=== PATIENT | female | born 1975 | race Caucasian/White ===

== ENCOUNTER 2022-01-20 07:56 | Emergency (ER) | payer MEDICAID, SELFPAY ==
[2022-01-20 08:10] VITALS: BP 124/72; PULSE 79; RESP 16; TEMP 37; O2SAT 96; BMI 35.8
--- NOTE | 2022-01-20 08:31 | ED.GENADULT ---
HPI - General Adult General Time Seen by Provider: 08:31 Date Seen: 01/20/22 Chief complaint: Cough Stated complaint: Cough, aches Time Seen by Provider: 01/20/22 08:30 Source: patient and RN notes reviewed Mode of arrival: ambulatory Limitations: no limitations History of Present Illness HPI narrative: Patient is a 46-year-old female coming into the ER with complaints of cough seen and intermittent fevers. She started getting sick on Monday night, today is morning. She has had nasal congestion, upper sore throat from the nasal drainage. She has had coughing fits where she will feel like she is going to throw up. This morning she coughs so hard that she actually fell down. She denies any injury, no loss of consciousness, not having any pain anywhere. She went to the clinic on Monday, her strep was normal, they are not testing for influenza yet and her COVID is still pending there. She has 3 other kids at home that sound ill as well. She states 2 of them ended up getting treated for ear infections and 1 with sinus issues. Her other son is starting to feel better. She states she had influenza twice last year despite the shot. She feels like that. She has significant body aches. No baseline nausea vomiting or diarrhea. She does have MS. Related Data Home Medications Medication Instructions Recorded Confirmed famotidine 20 mg tablet 20 mg PO DAILY 01/20/22 01/20/22 hydrochlorothiazide 25 mg tablet mg 01/20/22 hydrochlorothiazide 50 mg tablet 50 mg PO DAILY 01/20/22 01/20/22 lisinopril 10 mg tablet 10 mg PO DAILY 01/20/22 01/20/22 ofatumumab 20 mg/0.4 mL 20 mg subcut .monthly 01/20/22 01/20/22 subcutaneous pen injector (Kesimpta Pen) sertraline 100 mg tablet 100 mg PO DAILY 01/20/22 01/20/22 tizanidine 2 mg tablet 2 mg PO Q8H PRN 01/20/22 01/20/22 tizanidine 4 mg tablet 4 mg PO HS PRN muscle spasticity 01/20/22 01/20/22 Allergies Allergy/AdvReac Type Severity Reaction Status Date / Time acetaminophen [From Percocet] Allergy Verified 01/20/22 08:20 oxycodone Allergy Verified 01/20/22 08:20 Review of Systems Status of ROS: Reports: 6 or more systems reviewed and unremarkable except as noted in History and below PFSH PFS Social History Smoking Status: Former smoker Do you use any of these nicotine containing products: None Second hand tobacco smoke exposure: No How often do you have a drink containing alcohol: monthly or less How often do you have six or more drinks on one occasion: Never AUDIT-C Alcohol total score: 1 Non-prescribed substance use: denies use Exam Const: Vital Signs, click to edit/add: Vital Signs - 24 hr 01/20/22 08:10 01/20/22 09:30 Temperature 98.6 F 97.9 F Pulse Rate [Right Pulse Oximeter] 79 73 Respiratory Rate 16 16 Blood Pressure [Ri ght Upper Arm] 124/72 115/64 Pulse Oximetry 96 98 Oxygen Delivery Me thod Room Air Room Air Documenting provider has reviewed patient's vital signs: yes Common normals: no apparent distress, average body habitus, oriented x3, no limitations, alert and well nourished Exam limitations: altered mental status General appearance: cooperative and comfortable Other: Has audible nasal congestion but is able to speak in complete sentences, no hoarseness. HENMT: Common normals: normocephalic, head/scalp atraumatic, hearing grossly normal bilaterally, external ears normal, EAC's normal, TM's normal bilaterally, external nose normal, nasal mucous membranes and turbinates normal, moist oral mucous membranes, oropharynx normal, dentition normal and gingiva normal Head and scalp: normocephalic and atraumatic Nose: external nose normal and nasal mucous membranes and turbinates normal External ear: external ears normal External auditory canal: EAC's normal Tympanic membrane: TM's normal bilaterally Eye: Common normals: PERRL, EOMs intact bilaterally, conjunctivae normal and no scleral icterus Conjunctiva: conjunctiva(e) normal Pupil: PERRL Neck & C-Spine: Common normals: full ROM, no lymphadenopathy, supple, no meningeal signs, no JVD and thyroid normal Thyroid: thyroid normal Resp: Common normals: normal respiratory effort, no retractions, no use of accessory muscles and clear to auscultation bilaterally Auscultation: clear to auscultation bilaterally Cardio: Common normals: no JVD, regular rate, regular rhythm, S1 normal heart sound, S2 normal heart sound, no gallops, no clicks, no murmurs and no rub Rate: regular rate Rhythm: regular rhythm Heart sounds: S1 normal and S2 normal Neuro: Common normals: oriented x3 Sensorium/orientation: alert Meningeal signs: no meningeal signs Course Course Hospital Course: She is hemodynamically stable, oxygenating very well here. We will obtain a portable chest x-ray and do influenza and COVID testing. Reevaluation(s) Reevaluation #1: Patient is having significant headache. We discussed options. She would like to proceed with the Toradol. She is also requesting some water. Time: 09:41 Reevaluation #2: Reviewed with patient that her chest x-ray is normal, influenza negative but she is COVID positive. She would be interested in treatment and is within 5 day window to take oral treatment with Paxlovid. We would need a creatinine. I did put all of her medicines in the [facility] drug interaction and there was no contraindications. Time: 09:46 Vital Signs Vital signs: Initial Vital Signs Temperature 98.6 F 01/20/22 08:10 Temperature Source Temporal Artery Scan 01/20/22 08:10 Pulse Rate 79 01/20/22 08:10 Respiratory Rate 16 01/20/22 08:10 Blood Pressure 124/72 01/20/22 08:10 Blood Pressure Mean 89 01/20/22 08:10 Blood Pressure Position Semi-Fowlers 01/20/22 08:10 Pulse Oximetry 96 01/20/22 08:10 Oxygen Delivery Method 01/20/22 08:10 Vital Signs Temperature 98.6 F 01/20/22 08:10 Pulse Rate 79 01/20/22 08:10 Respiratory Rate 16 01/20/22 08:10 Blood Pressure 124/72 01/20/22 08:10 Pulse Oximetry 96 01/20/22 08:10 Oxygen Delivery Method 01/20/22 08:10 Temperature 97.9 F 01/20/22 09:30 Pulse Rate 73 01/20/22 09:30 Respiratory Rate 16 01/20/22 09:30 Blood Pressure 115/64 01/20/22 09:30 Pulse Oximetry 98 01/20/22 09:30 Oxygen Delivery Method 01/20/22 09:30 Medical Decision Making Lab Data Lab results reviewed: Yes I reviewed the patient's lab results Lab results narrative: Have calculated her creatinine clearance to be 121 mL/min, certainly sufficient to take the medicine Labs: Lab Results 01/20/22 01/20/22 Range/Units 08:22 09:50 SARS-CoV-2 (PCR) POSITIVE SARS-CoV-2 A (Negative) Influenza Type A (PCR) Negative PCR FLU A (Negative) Influenza Type B (PCR) Negative PCR FLU B (Negative) POC Creatinine 0.9 (0.6-1.3) mg/dl Imaging Data Chest x-ray: Attestation: I have reviewed the pertinent imaging results. My impression: Chest x-ray portable on my preliminary read without any acute cardiopulmonary pathology. Radiologist's impression: Patient: AMBAR GUZMÁN Facility:?[facility] Patient ID:?[id number] Site Patient ID:?[id number]. Site :?[id number] Study:?XRay Chest 1 VIEW PORTABLE-01/20/2022 9:14:01 AM Ordering Physician:Nick Baltazar Final Report: INDICATION: Cough TECHNIQUE: Single view chest. FINDINGS: The lungs are clear. The heart, mediastinum and pulmonary vessels are of normal size. There is no evidence of pleural disease. IMPRESSION: Negative chest. Dictated by Madison Vegas MD @ 01/20/2022 9:21:54 AM (Electronic Signature) Critical Care Time Critical Care Time Critical Care Time: No Discharge Plan Discharge Clinical Impression: COVID-19 Patient Disposition: Home, Self-Care Condition: Stable Instructions: COVID-19 (Coronavirus Disease 2019) (ED), COVID-19: Slow the Coronavirus Spread (ED) Additional Instructions: Start Paxlovid, needs to be started within the next 24 hours to be in the time frame to make it appropriate to take. Need to try to ambulate some every hour while you are awake to help keep your lungs open with the COVID. Need to stay out of public per CDC guidelines, certainly need to feel better and be improving. If you are worsening, develops chest pain, have significant difficulty breathing or shortness of breath, do need to seek re-evaluation. Activity Level: Activity as Tolerated Prescriptions: No Action famotidine 20 mg tablet 20 mg PO DAILY hydrochlorothiazide 25 mg tablet hydrochlorothiazide 50 mg tablet 50 mg PO DAILY lisinopril 10 mg tablet 10 mg PO DAILY Label Comments: TAKE ONE TABLET BY MOUTH EVERY DAY sertraline 100 mg tablet 100 mg PO DAILY tizanidine 2 mg tablet 2 mg PO Q8H PRN Label Comments: TAKE ONE TABLET BY MOUTH EVERY 8 HOURS NEEDED FOR MUSCLE SPASM. USE THE 2MG TABLET DURING THE DAY FOR DECREASED SEDATION, 4MG AT BEDTIME tizanidine 4 mg tablet 4 mg PO HS PRN (Reason: muscle spasticity) Kesimpta Pen 20 mg/0.4 mL pen injector 20 mg SUBCUT .monthly Stand Alone Forms: [facility] Inst[facility]
--- NOTE | 2022-01-20 08:38 | CRLHL7_ITS ---
For Patients: As a result of the Century Cures Act, medical imaging exams and procedure reports are released immediately into your electronic medical record. You may view this report before your referring provider. If you have questions, please contact your health care provider. INDICATION: Cough TECHNIQUE: Single view chest. FINDINGS: The lungs are clear. The heart, mediastinum and pulmonary vessels are of normal size. There is no evidence of pleural disease. IMPRESSION: Negative chest. Dictated by Madison Vegas MD @ 01/20/2022 9:21:54 AM (Electronically Signed)
--- OUTSIDE RECORDS SUMMARY | 2022-01-20 08:48 | XMS_ITS | Clinical Summary ---
:1975 Author Organization [facility] Address [address] [place] [address] Care Team Providers Name Role Phone Dianne Hewitt Primary Care Provider [phone] [facility], [facility] Unavailable [phone] Allergies Active Allergy Reactions Severity Noted Date Comments Duloxetine 01/06/2021 Oxycodone-Acetaminophen 01/06/2021 Dimethyl Fumarate 01/06/2021 Medications Medication Sig Dispensed Refills Start Date End Date Status acetaminophen (TYLENOL) Take 1,000 mg 0 Active 500 mg oral tablet by mouth. tiZANidine (ZANAFLEX) 4 mg TAKE ONE 0 11/18/2020 Active oral tablet TABLET BY MOUTH EVERY 8 HOURS NEEDED FOR MUSCLE SPASM ubrogepant (UBRELVY) 100 Take 100 mg by 0 08/11/2020 Active mg oral Tab mouth. sertraline (ZOLOFT) 100 mg Take 100 mg by 0 Active oral tablet mouth once daily. lisinopriL (PRINIVIL) 10 Take 1 tablet 0 04/21/2021 Active mg oral tablet (10 mg) by mouth once daily. hydroCHLOROthiazide Take 2 tablets 90 tablet 0 07/21/2021 Active (HYDRODIURIL) 25 mg oral (50 mg) by tablet mouth. Cholecalciferol, Vitamin Take 5,000 0 07/24/2020 Active D3, 5,000 unit (125 mcg) Units by oral tablet mouth. cyanocobalamin 1,000 mcg Take 1,000 mcg 0 07/24/2020 Active oral tablet by mouth. famotidine (PEPCID) 20 mg Take 20 mg by 0 06/16/2021 Active oral tablet mouth. ofatumumab (KESIMPTA PEN) Inject 20 mg 1.2 mL 3 09/28/2021 Active 20 mg/0.4 mL SubQ PnIj under the skin every 30 (thirty) days. Active Problems Problem Noted Date H/O total hysterectomy 08/11/2021 Multiple sclerosis 01/06/2021 Rheumatoid arthritis 07/24/2016 Multiple sclerosis 07/24/2016 Vitamin D deficiency 05/18/2012 Back pain Encounters Date Type Specialty Care Team Description 11/17/2021 Ancillary Procedure Radiology Multiple sclerosis, relapsing-remit ting (HCC) 11/17/2021 Ancillary Procedure Radiology Multiple sclerosis, relapsing-remit ting (HCC) 11/17/2021 Ancillary Procedure Radiology Multiple sclerosis, relapsing-remit ting (HCC) 11/17/2021 Travel 10/20/2021 Office Visit Neurology Prachi Duran, Multiple sclerosis, relapsing-remit ting (HCC) (Primary Dx) 10/20/2021 Travel from Last 3 Months Immunizations Name Administration Dates Next Due H1N1 Influenza 02/27/2009 Influenza 01/12/2021, 01/14/2020, 03/20/2019, 03/14/2018, 02/07/2017, 01/19/2016, 02/12/2015, 01/29/2014 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 07/26/2020, 06/28/2020 VACCINE PFIZER 12+ YRS (PURPLE CAP) COVID 03/17/2021 VACCINE Family History Medical History Relation Comments Asthma Other High Blood Pressure Other Migraines Other Relation Status Comments Other Social History Tobacco Use Types Packs/Day Years Used Date Smoking Tobacco: Never Smokeless Tobacco: Never Tobacco Cessation: Counseling Given: No Sex Assigned at Date Recorded Female 12/30/2020 9:08 AM CDT Plan of Treatment Health Maintenance Due Date Last Done Comments Colonoscopy 1975 Hepatitis C Screening 1975 Lipid Screening 1975 Pap Smear 1975 COVID-19 Vaccine (4 - 05/12/2021 03/17/2021, 07/26/2020, Booster for Moderna series) 06/28/2020 Influenza Vaccine (#1) 2021 01/12/2021, 01/14/2020, 03/20/2019, Additional history exists Mammogram Screening 08/26/2023 08/25/2021 Adult Tetanus Booster 08/26/2031 08/25/2021 Pneumococcal <65 Aged Out No longer eligi ble based on patient 's age to complete this topic Procedures Procedure Name Priority Date/Time Associated Comments Diagnosis MRI SPINE THORACIC W/[facility] Routine 11/17/2021 11:15 Multiple Results for this CON AM CDT sclerosis, procedure are i n relapsing-remittin the resul ts g (HCC) section. MRI SPINE CERVICAL W/[facility] Routine 11/17/2021 11:14 Multiple Results for this CON AM CDT sclerosis, procedure are i n relapsing-remittin the resul ts g (HCC) section. MRI BRAIN W/[facility] CON Routine 11/17/2021 11:02 Multiple Resu lts for this AM CDT sclerosis, procedure are i n relapsing-remittin the resul ts g (HCC) section. IMMUNOGLOBULINS A/E/G/M Routine 10/20/2021 10:45 Multiple Results for this QUANT ([facility]) AM CDT sclerosis, procedure ar e in relapsing-remittin the resul ts g (HCC) section. CBC/DIFFERENTIAL WITH Routine 10/20/2021 10:45 Multiple Re sults for this PLATELET ([facility]) AM CDT sclerosis, procedure are in relapsing-remittin the resul ts g (HCC) section. from Last 3 Months Results MRI SPINE THORACIC W/[facility] CON (11/17/2021 11:15 AM CDT) Anatomical Region Laterality Modality Spine Magnetic Resonance Specimen (Source) Anatomical Collection Method Collection Time Re ceived Time Location / / Volume Laterality 11/17/2021 1:45 PM CDT Impressions 11/17/2021 1:49 PM CDT 1. ??Normal thoracic spinal cord. 2. ??Unchanged disc degeneration as deta iled. This includes a disc extrusion at T7-8 causing mild to moderate spinal stenosis. Report signed by: Yann Alvarez MD Narrative 11/17/2021 1:49 PM CDT EXAM: MRI THORACIC SPINE WITHOUT AND WITH CONTRAST, 11/17/2021 CLINICAL DATA: Multiple sclerosis. COMPARISON: 08/18/2020. TECHNIQUE: Precontrast sagittal T1, T2, STIR; axial T2. Postcontrast sagittal T1. CONTRAST: 10 ml Gadavist IV FINDINGS: The thoracic spinal cord remai ns normal in appearance. No abnormal intramedullary lesion. No cord atrophy/expansion or abnormal enhancement with contrast. Alignment and curvature of the spine are within normal limits. Normal marrow signal. No fracture or wor risome bone lesion. Central to left paracentral disc extrusi on at T7-8 is unchanged, extending along near entirety of the posterior T7 vertebra. It continues to indent the ventral thecal sac but does not significantly deform the spinal cord. Minimal posterior disc bulge at T10-11, no associated stenosis. Larger diffuse disc bulge at T12-L1 causes mild spinal canal narrowing. No paraspinal soft tissue abnormality. Procedure Note Yann Alvarez MD - 11/17/2021Format ting of this note might be different from the original. EXAM: MRI THORACIC SPINE WITHOUT AND WIT H CONTRAST, 11/17/2021 CLINICAL DATA: Multiple sclerosis. COMPARISON: 08/18/2020. TECHNIQUE: Precontrast sagittal T1, T2, STIR; axial T2. Postcontrast sagittal T1. CONTRAST: 10 ml Gadavist IV FINDINGS: The thoracic spinal cord remai ns normal in appearance. No abnormal intramedullary lesion. No cord atrophy/expansion or abnormal enhancement with contrast. Alignment and curvature of the spine are within normal limits. Normal marrow signal. No fracture or wor risome bone lesion. Central to left paracentral disc extrusi on at T7-8 is unchanged, extending along near entirety of the posterior T7 vertebra. It continues to indent the ventral thecal sac but does not significantly deform the spinal cord. Minimal posterior disc bulge at T10-11, no associated stenosis. Larger diffuse disc bulge at T12-L1 causes mild spinal canal narrowing. No paraspinal soft tissue abnormality. IMPRESSION 1. Normal thoracic spinal cord. 2. Unchanged disc degeneration as detail ed. This includes a disc extrusion at T7-8 causing mild to moderate spinal stenosis. Report signed by: Yann lAvarez MD Prachi Duran MD MRI ORDERABLE MRI SPINE CERVICAL W/O&W CON (11/17/2021 11:14 AM CDT) Anatomical Region Laterality Modality Spine Magnetic Resonance Specimen (Source) Anatomical Collection Method Collection Time Re ceived Time Location / / Volume Laterality 11/17/2021 1:44 PM CDT Impressions 11/17/2021 1:45 PM CDT 1. ??Normal cervical/upper thoracic spin al cord. 2. ??Unchanged disc bulge at C5-6 causin g mild spinal stenosis. Report signed by: Jaime Sorensen Narrative 11/17/2021 1:45 PM CDT EXAM: MRI CERVICAL SPINE WITHOUT AND WITH CONTRAST, 11/17/2021 CLINICAL DATA: Multiple sclerosis. COMPARISON: 08/18/2020. TECHNIQUE: Precontrast sagittal T2, STIR ; axial FE T2. Postcontrast sagittal T1. CONTRAST: 10 ml Gadavist IV FINDINGS: The cervical and upper thoraci c spinal cord remain normal in appearance. No abnormal intramedullary lesion. No cord atrophy/expansion or abnormal enhancement after contrast. Alignment and curvature of the spine are within normal limits. Normal marrow signal. No fracture or wor risome bone lesion. Diffuse disc bulge at C5-6 is unchanged from before. It continues to flatten the ventral thecal sac without deforming the cord. Neural foramina are all widely patent. No paraspinal soft tissue abnormality. Procedure Note Yann Alvarez MD - 11/17/2021Format ting of this note might be different from the original. EXAM: MRI CERVICAL SPINE WITHOUT AND WIT H CONTRAST, 11/17/2021 CLINICAL DATA: Multiple sclerosis. COMPARISON: 08/18/2020. TECHNIQUE: Precontrast sagittal T2, STIR ; axial FE T2. Postcontrast sagittal T1. CONTRAST: 10 ml Gadavist IV FINDINGS: The cervical and upper thoraci c spinal cord remain normal in appearance. No abnormal intramedullary lesion. No cord atrophy/expansion or abnormal enhancement after contrast. Alignment and curvature of the spine are within normal limits. Normal marrow signal. No fracture or wor risome bone lesion. Diffuse disc bulge at C5-6 is unchanged from before. It continues to flatten the ventral thecal sac without deforming the cord. Neural foramina are all widely patent. No paraspinal soft tissue abnormality. IMPRESSION 1. Normal cervical/upper thoracic spinal cord. 2. Unchanged disc bulge at C5-6 causing mild spinal stenosis. Report signed by: Jaime Sorensen Prachi Duran MD MRI ORDERABLE MRI BRAIN W/O&W CON (11/17/2021 11:02 AM CDT) Anatomical Region Laterality Modality Head Magnetic Resonance Specimen (Source) Anatomical Collection Method Collection Time Re ceived Time Location / / Volume Laterality 11/17/2021 1:21 PM CDT Impressions 11/17/2021 1:43 PM CDT Findings compatible with intracranial demyelination given clinical diagnosis of multiple sclerosis. No change since August 2020: 1. ??T2 lesion burden: Mild, stable. 2. ??T1 lesion burden: Mild, stable. ?? 3. ??Lesion enhancement: None. 4. ??Volume loss: Localized atrophy righ t middle cerebellar peduncle unchanged. Report signed by: Jiame Sorensen Narrative 11/17/2021 1:43 PM CDT EXAM: MRI BRAIN WITHOUT AND WITH CONTRAST, ??11/17/2021 CLINICAL DATA: Multiple sclerosis. COMPARISON: 08/18/2020. TECHNIQUE: Sagittal FLAIR T1, sagittal F LAIR T2, axial DWI, axial FLAIR T2, axial FSE T2, axial GRE, axial and coronal T1 post gadolinium. CONTRAST: 10 ml Gadavist IV FINDINGS: T2 hyperintense lesions in the brain's white matter are unchanged since last year. In the cerebral hemispheres these are both periventricular and juxtacortical in location. Temporal lobes and corpus callosum are affected. Dominant l esion across right brachium pontis with extension to the superior cerebellar peduncle and inferolateral olga. No new T2 bright finding. Most of the lesions show corresponding s ignal hypointensity on the noncontrast T1-weighted images. The T1 lesion burden has not changed. No abnormal enhancement. Atrophy of the right middle cerebellar p eduncle unchanged. Brain volume elsewhere is normal. No sinus or mastoid disease. Procedure Note Yann Alvarez MD - 11/17/2021Format ting of this note might be different from the original. EXAM: MRI BRAIN WITHOUT AND WITH CONTRAS T, 11/17/2021 CLINICAL DATA: Multiple sclerosis. COMPARISON: 08/18/2020. TECHNIQUE: Sagittal FLAIR T1, sagittal F LAIR T2, axial DWI, axial FLAIR T2, axial FSE T2, axial GRE, axial and coronal T1 post gadolinium. CONTRAST: 10 ml Gadavist IV FINDINGS: T2 hyperintense lesions in the brain's white matter are unchanged since last year. In the cerebral hemispheres these are both periventricular and juxtacortical in location. Temporal lobes and corpus callosum are affected. Dominant lesion a cross right brachium pontis with extension to the superior cerebellar peduncle and inferolateral olga. No new T2 bright finding. Most of the lesions show corresponding s ignal hypointensity on the noncontrast T1-weighted images. The T1 lesion burden has not changed. No abnormal enhancement. Atrophy of the right middle cerebellar p eduncle unchanged. Brain volume elsewhere is normal. No sinus or mastoid disease. IMPRESSION Findings compatible with intracranial de myelination given clinical diagnosis of multiple sclerosis. No change since August 2020: 1. T2 lesion burden: Mild, stable. 2. T1 lesion burden: Mild, stable. 3. Lesion enhancement: None. 4. Volume loss: Localized atrophy right middle cerebellar peduncle unchanged. Report signed by: Jaime Sorensen Prachi Duran MD MRI ORDERABLE (ABNORMAL) CBC/DIFFERENTIAL WITH PLATELET ([facility]) (10/20/2021 10:45 AM CDT) [facility] gist Method Time Signature WBC ([facility]) 8.4 3.4 - [facility] 1 10.8 x10E3/uL RBC ([facility]) 4.99 3.77 - [facility] 1 5.28 x10E6/uL Hemoglobin 15.7 11.1 - [facility] 1 ([facility]) 15.9 g/dL Hematocrit 47.8 (H) 34.0 - [facility] 1 ([facility]) 46.6 % MCV ([facility]) 96 79 - 97 [facility] 1 fL MCH ([facility]) 31.5 26.6 - [facility] 1 33.0 pg MCHC ([facility]) 32.8 31.5 - [facility] 1 35.7 g/dL RDW ([facility]) 11.5 (L) 11.7 - [facility] 1 15.4 % Platelets 327 150 - 450 [facility] 1 ([facility]) x10E3/uL Neutrophils 65 Not [facility] 1 ([facility]) Estab. % Lymphocytes 25 Not [facility] 1 ([facility]) Estab. % Monocytes 6 Not [facility] 1 ([facility]) Estab. % Eosinophils 2 Not [facility] 1 ([facility]) Estab. % Basophils 1 Not [facility] 1 ([facility]) Estab. % Neutrophils 5.6 1.4 - 7.0 [facility] 1 Absolute x10E3/uL ([facility]) Lymphocytes 2.1 0.7 - 3.1 [facility] 1 Absolute x10E3/uL ([facility]) Monocytes 0.5 0.1 - 0.9 [facility] 1 Absolute x10E3/uL ([facility]) Eosinophils 0.2 0.0 - 0.4 [facility] 1 Absolute x10E3/uL ([facility]) Basophils 0.1 0.0 - 0.2 [facility] 1 Absolute x10E3/uL ([facility]) Immature 1 Not [facility] 1 Granulocytes Estab. % ([facility]) Immature 0.1 0.0 - 0.1 [facility] 1 Granulocytes x10E3/uL Absolute ([facility]) Specimen Anatomical Collection Method Collection Time Receive d Time (Source) Location / / Volume Laterality Blood 10/20/2021 10:45 10/19/2021 AM CDT 11:00 PM CDT Narrative [facility] 1 - 10/23/2021 2:07 PM CDT Performed at: ??01 - [facility] [address] ??[id number] [employer]: Severiano Rao MD, Phone: ?? [phone] Prachi Duran MD [facility] ORDERABLES Performing Organization Address City/State/ZIP Code Phon e Number [facility] 1 IMMUNOGLOBULINS A/E/G/M QUANT ([facility]) (10/20/2021 10:45 AM CDT) P athologist Signature IgG ([facility]) 746 586 - 1,602 [facility] 1 mg/dL IgA ([facility]) 146 87 - 352 [facility] 1 mg/dL IgM ([facility]) 97 26 - 217 [facility] 1 mg/dL IgE Total 25 6 - 495 [facility] 2 ([facility]) IU/mL Specimen Anatomical Collection Method Collection Time Receive d Time (Source) Location / / Volume Laterality Blood 10/20/2021 10:45 10/19/2021 AM CDT 11:00 PM CDT Narrative [facility] 2 - 10/23/2021 2:07 PM CDT Performed at: ??01 - [facility] [place] [address] [facility] [place] ??[id number] [employer]: Severiano Rao MD, Phone: ?? [phone] Performed at: ??02 - [facility] [place] [address] [place] [address] ??[phone] [employer]: Severiano Rao MD, Phone: ?? [phone] Prachi Duran MD [facility] ORDERABLES Performing Organization Address City/State/ZIP Code Phon e Number [facility] 2 [facility] 1 from Last 3 Months Insurance Payer Benefit Plan / Subscriber ID Effective Dates Phone Addre ss Type Group UCARE UCARE [id number] 2021-Present 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
--- OUTSIDE RECORDS SUMMARY | 2022-01-20 08:48 | XMS_ITS | Encounter Summary ---
:[address] [facility] Address [address] [place] [id number] Care Team Providers Name Role Phone Dianne Hewitt Primary Care Provider [phone] [facility][Note 3] Unavailable Encounter Details Date Type Department Care Team Description 10/20/2021 Travel Social History Tobacco Use Types Packs/Day Years Used Date Smoking Tobacco: Never Smokeless Tobacco: Never Sex Assigned at Date Recorded Female 12/30/2020 9:08 AM CDT COVID-19 Exposure Response Date Recorded In the last 10 days, have you been in contact with No / Unsu re 10/20/2021 10:53 AM CDT someone who was confirmed or suspected to have Coronavirus/COVID-19? 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
--- OUTSIDE RECORDS SUMMARY | 2022-01-20 08:48 | XMS_ITS | Encounter Summary ---
:1975 Author Organization [facility] Address [address] [place] [address] Care Team Providers Name Role Phone Dianne Hewitt Primary Care Provider [phone] [facility], [facility] Unavailable [phone] Reason for Referral (Routine) - Closed Specialty Diagnoses / Procedures Referred By Contact Refer red To Contact Diagnoses Multiple sclerosis, relapsing-remitting (HCC) Prachi Duran MD Procedures MRI SPINE THORACIC W/O&W CON [address] [place] [id number] Referral ID Status Reason Start Date Expiration Date Visits Requ ested Visits Authorized [id number] Closed 1 1 (Routine) - Closed Specialty Diagnoses / Procedures Referred By Contact Refer red To Contact Diagnoses Multiple sclerosis, relapsing-remitting (HCC) Prachi Duran MD Procedures MRI SPINE CERVICAL W/O&W CON [address] [place], [place] [address] Referral ID Status Reason Start Date Expiration Date Visits Requ ested Visits Authorized [id number] Closed 1 1 (Routine) - Closed Specialty Diagnoses / Procedures Referred By Contact Refer red To Contact Diagnoses Multiple sclerosis, relapsing-remitting (HCC) Prachi Duran MD Procedures MRI BRAIN W/O&W CON [address] [place], [place] [address] Referral ID Status Reason Start Date Expiration Date Visits Requ ested Visits Authorized [id number] Closed 1 1 Reason for Visit Reason Comments Follow up Encounter Details Date Type Department Care Team Description 10/20/2021 Office Visit [facility] - Janna Metz MD relapsing-remitting [facility] [address] [place] ([facility]) (Primary Dx) [address] [place], [place] [address] [phone] Social History Tobacco Use Types Packs/Day Years Used Date Smoking Tobacco: Never Smokeless Tobacco: Never Sex Assigned at Date Recorded Female 12/30/2020 9:08 AM CDT COVID-19 Exposure Response Date Recorded In the last 10 days, have you been in contact with No / Unsu re 10/20/2021 10:53 AM CDT someone who was confirmed or suspected to have Coronavirus/COVID-19? documented as of this encounter Progress Notes Prachi Duran MD - 10/20/2021 11:00 AM CDT Chief complaint: Multiple sclerosis Interval history Recently went to the ER because she had nausea, diarrhea, and vomiting. She was dehydrated but laterfelt better and after that she has had more headaches and vision issues. She feels more tired overall. She has been having right-sided arm and leg numbness and weakness. She has increased fatigue. She has episodes of urinary frequency and incontinence. She has blurry vision in both eyes. Her memory isnot that good. Her balance has been okay and denies any falls. Summary: Thank you for referring Fatoumata Zheng who I saw at [facility] in consultation for Multiple Sclerosis. She has a history of RA. Her first symptoms started in early 2017 when shedeveloped sudden numbness in her legs. She went to the ER twice but nothing was found. She then developed right eye vision issues and poor balance. So she had an MRI in 2016 along with an abnormal spinal tap consistent with Multiple Sclerosis. Her MRI showed enhancing and non enhancing lesions. She was diagnosed at [facility]. She was initially started on Copaxone but later had a new lesion so was changed over to Tecfidera which caused her to have some bleeding side effects and vomiting so th is medication was stopped in 1 week and then transition over to Rebif in 2018. She does have some flulike side effects from the Rebif and she takes ibuprofen to help with this. She has been having right-sided arm and leg weakness along with numbness. She has increased fatigue and increased urinary frequency. She does have blurry vision in both eyes but denies any double vision. She denies any depression. Her memory is not that good. Her balance has been poor and has had falls. She does have spasms in the right arm and right leg. She does have heat sensitivity. Denies any family history of MS. she also was diagnosed with migraines in the past and has improved after starting lisinopril. She was start ed on Ubrelvy in the past and gabapentin for prevention. She had a normal Vitamin D tested at [facility],normal LFT's. Positive Lori in the past. Negative Lyme's disease. I reviewed Images from her outside MRI's with lesions consistent with Multiple Sclerosis. 05/2020: Started Kesimpta. She gets a headache the day of her injection. She had some swelling of herfeet so her HCTZ was up to 50mg daily. PAST MEDICAL HISTORY Past Medical History: Diagnosis Date ??? Back pain ??? Balance problem ??? Essential hypertension, benign ??? Joint pain ??? Weakness MEDICATIONS Current Outpatient Medications: Medication Sig ??? acetaminophen (TYLENOL) 500 mg oral tablet Take 1,000 mg by mouth. ??? Cholecalciferol, Vitamin D3, 5,000 unit (125 mcg) oral tablet Take 5,000 Units by mouth. ??? cyanocobalamin 1,000 mcg oral tablet Take 1,000 mcg by mouth. ??? famotidine (PEPCID) 20 mg oral tablet Take 20 mg by mouth. ??? hydroCHLOROthiazide (HYDRODIURIL) 25 mg oral tablet Take 2 tablets (50 mg) by mouth. ??? lisinopriL (PRINIVIL) 10 mg oral tablet Take 1 tablet (10 mg) by mouth once daily. ??? ofatumumab (KESIMPTA PEN) 20 mg/0.4 mL SubQ PnIj Inject 20 mg under the skin every 30 (thirty) days. ??? ondansetron (ZOFRAN) 4 mg oral ODT Take 4 mg under the tongue. ??? sertraline (ZOLOFT) 100 mg oral tablet Take 100 mg by mouth once daily. ??? tiZANidine (ZANAFLEX) 4 mg oral tablet TAKE ONE TABLET BY MOUTH EVERY 8 HOURS NEEDED FOR MUSCLE SPASM ??? ubrogepant (UBRELVY) 100 mg oral Tab Take 100 mg by mouth. ALLERGIES Cymbalta [duloxetine], Percocet [oxycodone-acetaminophen], and Tecfidera [dimethyl fumarate] FAMILY HISTORY Family History Problem Relation Name Age of Onset ??? Migraines Other ??? Asthma Other ??? High Blood Pressure Other SOCIAL HISTORY Social History Socioeconomic History ??? Marital status: Spouse name: Not on file ??? Number of children: Not on file ??? Years of education: Not on file ??? Highest education level: Not on file Occupational History ??? Not on file Tobacco Use ??? Smoking status: Never Smoker ??? Smokeless tobacco: Never Used Substance and Sexual Activity ??? Alcohol use: Not on file ??? Drug use: Not on file ??? Sexual activity: Not on file Other Topics Concern ??? Not on file Social History Narrative ??? Not on file Social Determinants of Health Financial Resource Strain: Not on file Food Insecurity: Not on file Transportation Needs: Not on file Physical Activity: Not on file Stress: Not on file Social Connections: Not on file Intimate Partner Violence: Not on file Housing Stability: Not on file Neurological examination Mental Status: The patient is alert and oriented. Recent memory is normal. The person is attentive with normal concentration. Language is fluent. Speech is of normal ellie and character. The speech is nondysarthric. Fund of knowledge is normal. Cranial Nerve I: Not tested. Cranial Nerve II: The pupils are equal round and reactive to light. Cranial Nerves III, IV, : The extraocular movements are full in all directions of gaze without ophthalmoplegia or nystagmus. Cranial Nerve V: Light touch is intact and symmetric in the V1, V2, V3 divisions of both trigeminal nerves. Cranial Nerve XI: Normal shoulder shrug. Motor: Tone is normal in all four extremities without fasciculations, atrophy or myoclonus. There are no involuntary movements. Muscle Strength: The strength was 5/5 except right hand exchange clerk is 4/5. Reflexes: The reflexes are 2/4 for biceps, patellar tendon reflexes bilaterally and Symmetrically. Sensory: The sensory examination is normal for light touch bilaterally and symmetrically. Cerebellar: Some finger to nose ataxia on the right side. Musculoskeletal system and Gait: She walks with a slight limp. Timed 25 foot walk: 6.07 seconds. ASSESSMENT/PLAN: Is here for an evaluation for Multiple Sclerosis. Assessment/Plan: ICD-10-CM 1. Multiple sclerosis, relapsing-remitting (HCC) G35 MRI BRAIN W/O&W CON MRI SPINE CERVICAL W/O&W CON MRI SPINE THORACIC W/O&W CON CBC/DIFFERENTIAL WITH PLATELET ([facility]) IMMUNOGLOBULINS A/E/G/M QUANT ([facility]) CBC/DIFFERENTIAL WITH PLATELET ([facility]) IMMUNOGLOBULINS A/E/G/M QUANT ([facility]) Plan -Continue Kesimpta. This drug can cause progressive multifocal leukoencephalopathy which can potentially be fatal. -Drug monitoring for toxicity: Recent liver function test and CBC without differential were completed last month. Will check CBC with diff today and Immunoglobulins levels. -Vitamin D deficiency: Continue Vitamin D 5000IU. -HTN: Continue Lisinopril and HCTZ -Muscle spasms: Continue Tizanidine 4mg BID. -Trigmeinal Neuralgia: Does not happen often so will not use any medicines at this time. -Depression: Continue Zoloft. -Migraines: Continue Ubrelvy PRN. -Plan for repeat MRI brain and spinal cord in 11/2021 which will be 6 months after starting Kesimpta. -Follow up in 3 months. [facility] Prachi Duran M.D. documented in this encounter Miscellaneous Notes Result Encounter Note - Prachi Duran MD - 10/20/2021 11:00 AM CDT Please inform patient that labs are ok to continue Ocrevus. Thank you very much. Prachi Duran M.D. documented in this encounter Plan of Treatment Not on filedocumented as of this encounter Procedures Procedure Name Priority Date/Time Associated Comments Diagnosis CBC/DIFFERENTIAL WITH Routine 10/20/2021 10:45 Multiple Re sults for this PLATELET ([facility]) AM CDT sclerosis, procedure are in relapsing-remittin the resul ts g (HCC) section. IMMUNOGLOBULINS A/E/G/M Routine 10/20/2021 10:45 Multiple Results for this QUANT ([facility]) AM CDT sclerosis, procedure ar e in relapsing-remittin the resul ts g (HCC) section. documented in this encounter Results MRI SPINE THORACIC W/O&W CON (11/17/2021 [...] stenosis. Report signed by: Yann Alvarez MD Prachi Duran MD MRI ORDERABLE MRI [...] peduncle unchanged. Report signed by: Jaime Sorensen Narrative 11/17/2021 1:43 PM CDT EXAM: [...] Jaime Sorensen Prachi Duran MD MRI ORDERABLE IMMUNOGLOBULINS A/E/G/M QUANT ([facility]) (10/20/2021 10:45 AM [...] PM CDT Performed at: ??01 - [facility] [address] ??[id number] Life Educator: Severiano Rao MD, Phone: ?? [phone] Performed at: ??02 - [facility] [address] ??[id number] Life Educator: Severiano Rao MD, Phone: ?? [phone] Prachi Duran MD [facility] ORDERABLES Performing Organization Address City/State/ZIP Code Phon e Number [facility] 2 [facility] 1 (ABNORMAL) CBC/DIFFERENTIAL WITH PLATELET ([facility]) (10/20/2021 10:45 AM CDT) Patholo gist Method Time Signature WBC ([facility]) 8.4 [...] PM CDT Performed at: ??01 - [facility] [address] ??[id number] Life Educator: Severiano Rao MD, Phone: ?? [phone] Prachi Duran MD [facility] ORDERABLES Performing Organization Address City/State/ZIP Code Phon e Number [facility] 1 documented in this encounter Visit Diagnoses Diagnosis Multiple sclerosis, relapsing-remitting (HCC) - Primary Multiple sclerosis Multiple sclerosis, relapsing-remitting (HCC) Multiple sclerosis Multiple sclerosis, relapsing-remitting (HCC) Multiple sclerosis Multiple sclerosis, relapsing-remitting (HCC) Multiple sclerosis documented in this encounter Care Teams Bale Piler Relationship Specialty Start Date End Date Dianne Hewitt PA PCP - General 12/02/20 [address] [place] [address] [facility] PCP - Primary Care Clinic 1 [place] [address] [facility] [place] [address] documented as of this encounter
--- OUTSIDE RECORDS SUMMARY | 2022-01-20 08:48 | XMS_ITS | Encounter Summary ---
:1975 Author Organization [facility] Address [address] [place] [address] Care Team Providers Name Role Phone Dianne Hewitt Primary Care Provider [phone] [facility] Unavailable [phone] Encounter Details Date Type Department Care Team Description 11/17/2021 Travel Social History Tobacco Use Types Packs/Day Years Used Date Smoking Tobacco: Never Smokeless Tobacco: Never Sex Assigned at Date Recorded Female 12/30/2020 9:08 AM CDT COVID-19 Exposure Response Date Recorded In the last 10 days, have you been in contact with No / Unsu re 11/17/2021 9:29 AM CDT someone who was confirmed or suspected to have Coronavirus/COVID-19? documented as of this encounter Plan of Treatment Not on filedocumented as of this encounter Visit Diagnoses Not on filedocumented in this encounter Care Teams Chemical Process Equipment Operator Relationship Specialty Start Date End Date Dianne Hewitt PA PCP - General 12/02/20 [address] [facility] [address] [facility] PCP - Primary Care Clinic [address] [place] [address] [place] [address] documented as of this encounter
--- OUTSIDE RECORDS SUMMARY | 2022-01-20 08:48 | XMS_ITS | Encounter Summary ---
:1975 Author Organization [facility] Address [address] [place] [address] Care Team Providers Name Role Phone Dianne Hewitt Primary Care Provider [phone] [facility], [facility] Unavailable [phone] Reason for Visit (Routine) - Closed Specialty Diagnoses / Procedures Referred By Contact Refer red To Contact Diagnoses Multiple sclerosis, relapsing-remitting ([facility]) Prachi Duran MD Procedures MRI BRAIN W/O&W [address] [address] Referral ID Status Reason Start Date Expiration Date Visits Requ ested Visits Authorized [id number] Closed 1 1 Encounter Details Date Type Department Care Team Description 11/17/2021 Ancillary Procedure [facility] of Multiple sclerosis, Neurology - [facility] relapsing-remitting [facility] ([facility]) [address] [place], [place] [address] Social History Tobacco Use Types Packs/Day Years Used Date Smoking Tobacco: Never Smokeless Tobacco: Never Sex Assigned at Date Recorded Female 12/30/2020 9:08 AM CDT COVID-19 Exposure Response Date Recorded In the last 10 days, have you been in contact with No / Unsu re 11/17/2021 9:29 AM CDT someone who was confirmed or suspected to have Coronavirus/COVID-19? documented as of this encounter Miscellaneous Notes Result Encounter Note - Prachi Duran MD - 11/17/2021 10:00 AM CDT No text entered by sender. documented in this encounter Plan of Treatment Not on filedocumented as of this encounter Procedures Procedure Name Priority Date/Time Associated Diagnosis Comme nts MRI BRAIN W/O&W CON Routine 11/17/2021 11:02 AM Multiple scler osis, Results for this CDT relapsing-remitting procedur e are in (HCC) the results section. documented in this encounter Results MRI BRAIN W/O&W CON (11/17/2021 11:02 AM [...] Jaime Sorensen Prachi Duran MD MRI ORDERABLE documented in this encounter Visit Diagnoses Diagnosis Multiple sclerosis, relapsing-remitting (HCC) Multiple sclerosis documented in this encounter Administered Medications Inactive Administered Medications - up to 3 most recent administrations Medication Order MAR Action Action Date Dose Rate Site gadobutroL (GADAVIST) 10 mmol/10 Given 11/17/2021 11:02 AM CDT 1 0 mL mL (1 mmol/mL) solution 1-10 mL 1-10 mL, Intravenous, INTRA-PROCEDURE ONE TIME DOSE NEEDED, 1 dose, Starting on Mon11/17/21 at 1102, Until Mon11/17/21 at 1102, per procedure documented in this encounter Care Teams Promotions Associate Relationship Specialty Start Date End Date Dianne Hewitt PA PCP - General 12/02/20 [address] [place] [address] [facility], [facility] PCP - Primary Care Clinic 1 [place] [address] [place] [id number] documented as of this encounter
--- OUTSIDE RECORDS SUMMARY | 2022-01-20 08:48 | XMS_ITS | Encounter Summary ---
:1975 Author Organization [facility] Address [address] [place] [address] Care Team Providers Name Role Phone Dianne Hewitt Primary Care Provider [phone] [facility], [facility] Unavailable [phone] Reason for Visit (Routine) - Closed Specialty Diagnoses / Procedures Referred By Contact Refer red To Contact Diagnoses Multiple sclerosis, relapsing-remitting ([facility]) Prachi Duran MD Procedures MRI SPINE CERVICAL W/O&W [place] [address] [place], [place] [address] Referral ID Status Reason Start Date Expiration Date Visits Requ ested Visits Authorized [id number] Closed 1 1 Encounter Details Date Type Department Care Team Description 11/17/2021 Ancillary Procedure [facility] of Multiple sclerosis, Neurology - [facility] relapsing-remitting [facility] ([facility]) [address] [place], [place] [address] Social History Tobacco Use Types Packs/Day Years [...] Priority Date/Time Associated Diagnosis Comme nts MRI SPINE CERVICAL Routine 11/17/2021 11:14 AM Multiple sclero sis, Results for this W/O&W CON CDT relapsing-remitting procedur e are in (HCC) the results section. documented in this encounter Results MRI SPINE CERVICAL W/O&W CON (11/17/2021 11:14 [...] sclerosis documented in this encounter Care Teams Shorthand Teacher Relationship Specialty Start Date End Date Dianne Hewitt PA PCP - General 12/02/20 [address] [place] [address] [facility] PCP - Primary Care Clinic 1 [place] [address] [place] [address] documented as of this encounter
--- OUTSIDE RECORDS SUMMARY | 2022-01-20 08:48 | XMS_ITS | Encounter Summary ---
:1975 Author Organization [facility] Address [address] [place] [address] Care Team Providers Name Role Phone Dianne Hewitt Primary Care Provider [phone] [facility], [facility] Unavailable [phone] Reason for Visit (Routine) - Closed Specialty Diagnoses / Procedures Referred By Contact Refer red To Contact Diagnoses Multiple sclerosis, relapsing-remitting ([facility]) Prachi Duran MD Procedures MRI SPINE THORACIC W/O&W [place] [address] [place], [place] [address] Referral ID Status Reason Start Date Expiration Date Visits Requ ested Visits Authorized [id number] Closed 1 1 Encounter Details Date Type Department Care Team Description 11/17/2021 Ancillary Procedure [facility] of Multiple sclerosis, Neurology - [facility] relapsing-remitting [facility] ([facility]) [address] [place], [place] [address] Social History Tobacco Use Types Packs/Day Years [...] Date/Time Associated Diagnosis Comme nts MRI SPINE THORACIC Routine 11/17/2021 11:15 AM Multiple sclero sis, Results for this [...] Alvarez MD Prachi Duran MD MRI ORDERABLE documented in this encounter Visit Diagnoses Diagnosis Multiple sclerosis, relapsing-remitting (HCC) Multiple sclerosis documented in this encounter Care Teams Gum Rolling Machine Operator Relationship Specialty Start Date End Date Dianne Hewitt PA PCP - General 12/02/20 [address] [place] [address] [facility] PCP - Primary Care Clinic 1 [place] [address] [place] [address] documented as of this encounter
--- OUTSIDE RECORDS SUMMARY | 2022-01-20 08:49 | XMS_ITS | Encounter Summary ---
:1975 Author Organization [facility] Address [address] [place] [address] Care Team Providers Name Role Phone Dianne Hewitt Primary Care Provider [phone] [facility], [facility] Unavailable [phone] Encounter Details Date Type Department Care Team Description 04/21/2021 Travel Social History Tobacco Use Types Packs/Day Years Used Date Smoking Tobacco: Never Smokeless Tobacco: Never Sex Assigned at Date Recorded Female 12/30/2020 9:08 AM CDT COVID-19 Exposure Response Date Recorded In the last month, have you been in contact with No / Unsure 04/21/2021 11:08 AM NET DEVELOPMENT MANAGER someone who was confirmed or suspected to have Coronavirus / COVID-19? documented as of this encounter Plan of Treatment Not on filedocumented as of this encounter Visit Diagnoses Not on filedocumented in this encounter Care Teams Manager Post Relationship Specialty Start Date End Date Dianne Hewitt PA PCP - General 12/02/20 [address] [facility] [address] [facility] PCP - Primary Care Clinic [address] [place] [address] [place] [address] documented as of this encounter
--- OUTSIDE RECORDS SUMMARY | 2022-01-20 08:49 | XMS_ITS | Encounter Summary ---
:1975 Author Organization [facility] Address [address] [place] [address] Care Team Providers Name Role Phone Dianne Hewitt Primary Care Provider [phone] [facility], [facility] Unavailable [phone] Encounter Details Date Type Department Care Team Description 07/21/2021 Travel Social History Tobacco Use Types Packs/Day Years Used Date Smoking Tobacco: Never Smokeless Tobacco: Never Sex Assigned at Date Recorded Female 12/30/2020 9:08 AM CDT COVID-19 Exposure Response Date Recorded In the last month, have you been in contact with No / Unsure 07/21/2021 10:51 AM CDT someone who was confirmed or suspected to have Coronavirus / COVID-19? documented as of this encounter Plan of Treatment Not on filedocumented as of this encounter Visit Diagnoses Not on filedocumented in this encounter Care Teams Director Counseling Bureau Relationship Specialty Start Date End Date Dianne Hewitt PA PCP - General 12/02/20 [address] [facility] [place] [address] [facility] PCP - Primary Care Clinic 1 [place] [address] [facility] [address] documented as of this encounter
--- OUTSIDE RECORDS SUMMARY | 2022-01-20 08:49 | XMS_ITS | Encounter Summary ---
:1975 Author Organization [facility] Address [address] [place] [address] Care Team Providers Name Role Phone Dianne Hewitt Primary Care Provider [phone] Clinic, [facility] Unavailable [phone] Reason for Visit Reason Comments Follow up Encounter Details Date Type Department Care Team Description 07/21/2021 Office Visit [facility] of Prachi Duran sclerosis, Neurology - Janna Metz MD relapsing-remitting [address] ([facility]) (Primary Dx) [address] [place], [place] [address] [phone] Social History Tobacco Use Types Packs/Day Years Used Date Smoking Tobacco: Never Smokeless Tobacco: Never Sex Assigned at Date Recorded Female 12/30/2020 9:08 AM CDT COVID-19 Exposure Response Date Recorded In the last month, have you been in contact with No / Unsure 07/21/2021 10:51 AM CDT someone who was confirmed or suspected to have Coronavirus / COVID-19? documented as of this encounter Progress Notes Prachi Duran MD - 07/21/2021 11:00 AM CDT Chief complaint: Multiple sclerosis Interval history She recently started Kesimpta and is tolerating fine besides a headache the day of the shot. She hasbeen having right-sided arm and leg numbness along with weakness along with difficulty with fine motor movements. She has increased fatigue and increased urinary frequency. She denies any depression. She has blurry vision in both eyes but denies double vision or memory is not good. Her balance is not the best and has been having falls. She denies any spasms. She has Migraines and takes Ubrelvy and also takes it the day of her Kesimpta shot. Summary: Thank you for referring Fatoumata Zheng who I saw at [facility] in consultation for Multiple Sclerosis. She has a history of RA. Her first symptoms started in early 2016 when shedeveloped sudden numbness in her legs. She went to the ER twice but nothing was found. She then developed right eye vision issues and poor balance. So she had an MRI in 2016 along with an abnormal spinal tap consistent with Multiple Sclerosis. Her MRI showed enhancing and non enhancing lesions. She was diagnosed at [facility]. She was initially started on Copaxone but [...] had a normal Vitamin D tested at [facility],normal LFT's. Positive Lori in the past. Negative [...] tablet Take 1,000 mg by mouth. ??? cetirizine (ZYRTEC) 10 mg oral tablet Take 10 mg by mouth. ??? Cholecalciferol, Vitamin D3, 5,000 unit (125 mcg) oral tablet Take 5,000 Units by mouth. ??? cyanocobalamin 1,000 mcg oral tablet Take 1,000 mcg by mouth. ??? cyclobenzaprine (FLEXERIL) 10 mg oral tablet Take 10 mg by mouth. ??? famotidine (PEPCID) 20 mg oral tablet Take 20 mg by mouth. ??? hydroCHLOROthiazide (HYDRODIURIL) 25 mg oral tablet Take 2 tablets (50 mg) by mouth. ??? lisinopriL (PRINIVIL) 10 mg oral tablet Take 1 tablet (10 mg) by mouth once daily. ??? ofatumumab (KESIMPTA PEN) 20 mg/0.4 mL SubQ PnIj Inject 20 mg under the skin every 30 (thirty) days. Initial: 20 mg once weekly for 3 doses (weeks 0, 1, and 2); maintenance: 20 mg once monthly starting at week 4. ??? sertraline (ZOLOFT) 100 mg oral tablet [...] Strength: The strength was 5/5 except right arm is 4/5. Reflexes: The reflexes are 2/4 for biceps, patellar tendon reflexes bilaterally and Symmetrically. Sensory: The sensory examination is normal for light touch bilaterally and symmetrically. Cerebellar: Some finger to nose ataxia on the right side. Musculoskeletal system and Gait: She walks with a slight limp. Timed 25 foot walk: 5.3 seconds. ASSESSMENT/PLAN: Is here for an evaluation for Multiple Sclerosis. Assessment/Plan: ICD-10-CM 1. Multiple sclerosis, relapsing-remitting (HCC) G35 CBC/DIFFERENTIAL WITH PLATELET ([facility]) HEPATIC FUNCTION PANEL 7 ([facility]) IMMUNOGLOBULINS A/E/G/M QUANT ([facility]) CBC/DIFFERENTIAL WITH PLATELET ([facility]) HEPATIC FUNCTION PANEL 7 ([facility]) IMMUNOGLOBULINS A/E/G/M QUANT ([facility]) Plan -Continue Kesimpta. This drug can cause progressive multifocal leukoencephalopathy which can potentially be fatal. -Drug monitoring for toxicity: We will check CBC with differential to look for any signs of low lymphocyte counts or neutropenia. Will check liver function test to assess for any signs of early liver failure. -Vitamin D deficiency: Continue Vitamin D 5000IU. -HTN: Continue Lisinopril and HCTZ -Muscle spasms: Continue Tizanidine at night time and Flexeril for morning spasms. She also has Trigmeinal Neuralgia and Flexeril helps this. -Depression: Continue Zoloft. -Migraines: Continue Ubrelvy PRN. -Plan for repeat MRI brain and spinal cord in 11/2021 which will be 6 months after starting Kesimpta. -Follow up in 3 months. [facility] of neurology Prachi Duran M.D. documented in this encounter Plan of Treatment Scheduled Orders Name Type Priority Associated Diagnoses Order S chedule CBC/DIFFERENTIAL WITH Lab Routine Multiple sclerosis, Expected: PLATELET ([facility]) relapsing-remitting , Expires: (HCC) 07/21/2022 HEPATIC FUNCTION PANEL 7 Lab Routine Multiple scleros is, Expected: ([facility]) relapsing-remitting 07/22/19 22, Expires: (HCC) 07/21/2022 IMMUNOGLOBULINS A/E/G/M Lab Routine Multiple sclerosi s, Expected: QUANT ([facility]) relapsing-remitting 07/21, Expires: (HCC) 07/21/2022 documented as of this encounter Visit Diagnoses Diagnosis Multiple sclerosis, relapsing-remitting (HCC) - Primary Multiple sclerosis documented in this encounter Care Teams Director Of Curriculum Relationship Specialty Start Date End Date Dianne Hewitt PA PCP - General 12/02/20 [address] [place] [address] [facility] PCP - Primary Care Clinic [address] [place] [address] [place] [address] documented as of this encounter
--- OUTSIDE RECORDS SUMMARY | 2022-01-20 08:49 | XMS_ITS | Encounter Summary ---
:1975 Author Organization [facility] Address [address] [place] [address] Care Team Providers Name Role Phone Dianne Hewitt Primary Care Provider [phone] Clinic, [facility] Unavailable [phone] Reason for Visit Reason Comments Follow up Encounter Details Date Type Department Care Team Description 04/21/2021 Office Visit [facility] of Prachi Duran tiple sclerosis, Neurology - Janna Metz MD relapsing-remitting [address] ([facility]) (Primary Dx) [address] [place], [place] [address] [phone] Social History Tobacco Use Types Packs/Day Years Used Date Smoking Tobacco: Never Smokeless Tobacco: Never Sex Assigned at Date Recorded Female 12/30/2020 9:08 AM CDT COVID-19 Exposure Response Date Recorded In the last month, have you been in contact with No / Unsure 04/21/2021 11:08 AM CODE ENFORCEMENT INSPECTOR someone who was confirmed or suspected to have Coronavirus / COVID-19? documented as of this encounter Progress Notes Prachi Duran MD - 04/21/2021 11:30 AM CST Chief complaint: Multiple sclerosis Interval history She has been having numbness in the right arm and leg. She has weakness on the right arm and leg as well. She has increased fatigue and increased urinary frequency. She has some occasional blurry vision. She denies any double vision or depression. She feels her memory is not that good. Her balance hasnot been good and has been having falls. She denies any spasms or recent relapse. She has Migraines about twice per month and takes Ubrelvy for it. She has Trigmeinal Neuralgia and Summary: Thank you for referring Fatoumata Zheng who I saw at [facility] in consultation for Multiple Sclerosis. [...] non enhancing lesions. She was diagnosed at [facility]. She was initially started on Copaxone but [...] had a normal Vitamin D tested at [facility],normal LFT's. Positive Lori in the past. Negative Lyme's disease. I reviewed Images from her outside MRI's with lesions consistent with Multiple Sclerosis. PAST MEDICAL HISTORY Past Medical History: Diagnosis Date ??? Back pain ??? Balance problem ??? Essential hypertension, benign ??? Joint pain ??? Weakness MEDICATIONS Current Outpatient Medications: Medication Sig ??? acetaminophen (TYLENOL) 500 mg oral tablet Take 1,000 mg by mouth. ??? cetirizine (ZYRTEC) 10 mg oral tablet Take 10 mg by mouth. ??? cyclobenzaprine (FLEXERIL) 10 mg oral tablet Take 10 mg by mouth. ??? hydroCHLOROthiazide (HYDRODIURIL) 25 mg oral tablet Take 25 mg by mouth. ??? lisinopriL (PRINIVIL) 10 mg oral tablet Take 1 tablet (10 mg) by mouth once daily. ??? ofatumumab (KESIMPTA PEN) 20 mg/0.4 mL SubQ PnIj Inject 20 mg under the skin every 30 (thirty) days. Initial: 20 mg once weekly for 3 doses (weeks 0, 1, and 2); maintenance: 20 mg once monthly starting at week 4. ??? REBIF, WITH ALBUMIN, 44 mcg/0.5 mL SubQ syringe ??? sertraline (ZOLOFT) 100 mg oral tablet [...] Blood Pressure Other SOCIAL HISTORY Social History Tobacco Use ??? Smoking status: Never Smoker ??? Smokeless tobacco: Never Used Substance Use Topics ??? Alcohol use: Not on file ??? Drug use: Not on file Neurological examination Mental Status: [...] movements. Muscle Strength: The strength was 5/5 in both arms and legs. Reflexes: The reflexes are 2/4 for biceps, patellar tendon reflexes bilaterally and Symmetrically except right leg was 3/4. Sensory: The sensory examination is normal for light touch bilaterally and symmetrically. Cerebellar: Some finger to nose ataxia on the right side. Musculoskeletal system and Gait: She walks with a slight limp. Timed 25 foot walk: 5.3 seconds. ASSESSMENT/PLAN: Is here for an evaluation for Multiple Sclerosis. Patient is aware that they are starting on a drug for multiple sclerosis that can cause progressive multifocal leukoencephalopathy which can potentially be fatal. Assessment/Plan: ICD-10-CM 1. Multiple sclerosis, relapsing-remitting (HCC) G35 Plan -She is having side effects to Rebif. Will start Kesimpta. Prefer not to use Gilenya class with her history of hypertension. -Drug monitoring for toxicity:CBC, LFT's and Immunoglobulins ok to start Kesimpta -Vitamin D deficiency: Continue Vitamin D 5000IU. -HTN: Continue Lisinopril and HCTZ -Muscle spasms: Continue Tizanidine at night time and Flexeril for morning spasms. She also has Trigmeinal Neuralgia and Flexeril helps this. -Neuropathic pain: Lyrica made her tired so was stopped. -Depression: Continue Zoloft. -Migraines: Continue Ubrelvy PRN. -Recommend regular exercise. -Follow up in 3 months. [facility] Prachi Duran M.D. ENFORCEMENT INSPECTOR documented in this encounter Plan of Treatment Not on filedocumented as of this encounter Visit Diagnoses Diagnosis Multiple sclerosis, relapsing-remitting (HCC) - Primary Multiple sclerosis documented in this encounter Care Teams Optical Worker Relationship Specialty Start Date End Date Dianne Hewitt PA PCP - General 12/02/[address] [place] [address] [facility] PCP - Primary Care Clinic [address] [place] [address] documented as of this encounter
--- OUTSIDE RECORDS SUMMARY | 2022-01-20 08:49 | XMS_ITS | Encounter Summary ---
:1975 Author Organization [facility] Address [address] [place] [address] Care Team Providers Name Role Phone Dianne Hewitt Primary Care Provider [phone] [facility], [facility] Unavailable [phone] Encounter Details Date Type Department Care Team Description 01/06/2021 Travel Social History Tobacco Use Types Packs/Day Years Used Date Smoking Tobacco: Never Smokeless Tobacco: Never Sex Assigned at Date Recorded Female 12/30/2020 9:08 AM CDT COVID-19 Exposure Response Date Recorded In the last month, have you been in contact with No / Unsure 01/06/2021 9:06 AM CDT someone who was confirmed or suspected to have Coronavirus / COVID-19? documented as of this encounter Plan of Treatment Not on filedocumented as of this encounter Visit Diagnoses Not on filedocumented in this encounter Care Teams Plant Tender Relationship Specialty Start Date End Date Dianne Hewitt PA PCP - General 12/02/20 [address] [facility] [address] [facility] PCP - Primary Care Clinic [address] [place] [address] [facility] [address] documented as of this encounter
--- OUTSIDE RECORDS SUMMARY | 2022-01-20 08:49 | XMS_ITS | Encounter Summary ---
:1975 Author Organization [facility] Address [address] [place] [address] Care Team Providers Name Role Phone Dianne Hewitt Primary Care Provider [phone] [facility], [facility] Unavailable [phone] Reason for Visit Reason Comments Multiple Sclerosis Encounter Details Date Type Department Care Team Description 01/06/2021 Office Visit [facility] of Prachi Duran tiple sclerosis (HCC) (Primary Dx); Neurology - Janna Metz MD Migraine syndrome [address] [place], [place] [address] [phone] Social History Tobacco Use Types Packs/Day Years [...] encounter Progress Notes Prachi Duran MD - 01/06/2021 9:30 AM CDT History of present illness: Thank you for referring Fatoumata Zheng who I saw at [facility] in consultation for Multiple Sclerosis. [...] non enhancing lesions. She was diagnosed at [facility]. she was initially started on Copaxone but later had a new lesion sowas changed over to Tecfidera which caused her to have some bleeding side effects and vomiting so this medication was stopped in 1 week and [...] has had falls. She does have spasms inthe right arm and right leg. She does have heat sensitivity. Denies any family history of MS. she also was diagnosed with migraines in the past and has improved after starting lisinopril. She was starte d on Ubrelvy in the past and gabapentin for prevention. She had a normal Vitamin D tested at [facility], normal LFT's. Positive Lori in the past. Negative [...] tablet Take 10 mg by mouth. ??? fluconazole (DIFLUCAN) 150 mg oral tablet ??? hydroCHLOROthiazide (HYDRODIURIL) 25 mg oral tablet Take 25 mg by mouth. ??? lisinopriL (PRINIVIL) 20 mg oral tablet Take 20 mg by mouth once daily. ??? omeprazole (PRILOSEC) 20 mg oral delayed release capsule Daily ??? oxymetazoline 0.05% (AFRIN) 0.05 % Nasal [place] nasal spray Instill 2 sprays into each nostril. ??? pregabalin (LYRICA) 50 mg oral capsule Take 50 mg by mouth. ??? REBIF, WITH ALBUMIN, 44 mcg/0.5 mL SubQ syringe ??? sertraline (ZOLOFT) 50 mg oral tablet Take 0.5 tab by mouth once daily for 1 week, then increaseto 1 tablet by mouth once daily ??? tiZANidine (ZANAFLEX) 4 mg oral tablet [...] movements. Muscle Strength: The strength was 5/5 on left side and 4/5 on the right side. Reflexes: The reflexes are 2/4 for biceps, patellar tendon reflexes bilaterally and Symmetrically except right leg was 3/4. Sensory: The sensory examination is normal for light touch bilaterally and symmetrically. Cerebellar: Some finger to nose ataxia on the right side. Musculoskeletal system and Gait: She walks with a slight limp. Timed 25 foot walk: 5.02 seconds. ASSESSMENT/PLAN: Assessment/Plan: ICD-10-CM 1. Multiple sclerosis (HCC) G35 CBC/DIFFERENTIAL WITH PLATELET ([facility]) HBV EVALUATION PROFILE ([facility]) HEPATIC FUNCTION PANEL 7 ([facility]) IMMUNOGLOBULINS A/E/G/M QUANT ([facility]) VITAMIN D, 25-HYDROXY ([facility]) CBC/DIFFERENTIAL WITH PLATELET ([facility]) HBV EVALUATION PROFILE ([facility]) HEPATIC FUNCTION PANEL 7 ([facility]) IMMUNOGLOBULINS A/E/G/M QUANT ([facility]) VITAMIN D, 25-HYDROXY ([facility]) 2. Migraine syndrome G43.909 Plan -She is having side effects to Rebif. Will start Kesimpta. Prefer not to use Gilenya class with her history of hypertension. -Drug monitoring for toxicity: We will check CBC with differential to look for any signs of low lymphocyte counts or neutropenia. Will check liver function test to assess for any signs of early liver failure. We will check immunoglobulin levels and hepatitis B screen. -Plan for MRI brain and spinal cord. -Vitamin D deficiency: Continue Vitamin D 5000IU. -HTN: Continue Lisinopril and HCTZ -Muscle spasms: Continue Tizanidine and Flexeril -Neuropathic pain: Continue Lyrica through pcp -Depression: Continue Zoloft. -Migraines: Continue Ubrelvy PRN. -Recommend regular exercise. -Follow up in 3 months. A 45-minute slot was used today by the patient. The time included reviewing charts, documentation, time spent with the patient and counseling. [facility] Prachi Duran M.D. 01/06/2021 documented in this encounter Plan of Treatment Not on filedocumented as of this encounter Procedures Procedure Name Priority Date/Time Associated Comments Diagnosis HBV EVALUATION PROFILE Routine 01/06/2021 10:10 Multiple scler osis Results for this ([facility]) AM CDT (HCC) procedure are i n the results section. CBC/DIFFERENTIAL WITH Routine 01/06/2021 10:10 Multiple sclero sis Results for this PLATELET ([facility]) AM CDT (HCC) procedure are in the results section. VITAMIN D, 25-HYDROXY Routine 01/06/2021 10:10 Multiple sclero sis Results for this ([facility]) AM CDT (HCC) procedure are i n the results section. IMMUNOGLOBULINS A/E/G/M Routine 01/06/2021 10:10 Multiple scle rosis Results for this QUANT ([facility]) AM CDT (HCC) procedure ar e in the results section. HEPATIC FUNCTION PANEL 7 Routine 01/06/2021 10:10 Multiple scl erosis Results for this ([facility]) AM CDT (HCC) procedure are i n the results section. documented in this encounter Results VITAMIN D, 25-HYDROXY ([facility]) (01/06/2021 10:10 AM CDT) P athologist Signature Vitamin D,25 57.0 30.0 - [facility] 1 Hydroxy 100.0 ng/mL ([facility]) Comment: Vitamin D deficiency has been defined by the [place] [employer] and an Endocrine Society practi ce guideline as a level of serum 25-OH vitamin D less than 20 ng/mL (1,2). The Endocrine Society went on to further define vitamin D insufficiency as a level between 21 and 29 ng/mL (2). 1. IOM ([place] [employer]). 2010. Di etary reference ?? intakes for calcium and D. [place]: The ?? National AcademVoyat Press. 2. Kvng MF, Gisella [place], Bandar luo BALDWIN, et al. ?? Evaluation, treatment, and preventio n of vitamin D ?? deficiency: an Endocrine Society cli nical practice ?? guideline. JCEM. 2010; 96(7):191 1-30. Specimen Anatomical Collection Method Collection Time Receive d Time (Source) Location / / Volume Laterality Blood 01/06/2021 10:10 01/05/2021 AM CDT 11:00 PM CDT Narrative [facility] 1 - 01/09/2021 9:06 PM CDT Performed at: ??01 - [facility] [address], [place], [place] ??[id number] Web Marketing Strategist: Severiano Rao MD, Phone: ?? [phone] Prachi Duran MD [facility] ORDERABLES Performing Organization Address City/State/ZIP Code Phon e Number [facility] 1 IMMUNOGLOBULINS A/E/G/M QUANT ([facility]) (01/06/2021 10:10 AM CDT) P athologist Signature IgG ([facility]) [phone] - 1,602 [facility] 1 mg/dL IgA ([facility]) 152 87 - 352 [facility] 1 mg/dL IgM ([facility]) 148 26 - 217 [facility] 1 mg/dL IgE Total 50 6 - 495 [facility] 2 ([facility]) IU/mL Specimen Anatomical Collection Method Collection Time Receive d Time (Source) Location / / Volume Laterality Blood 01/06/2021 10:10 01/05/2021 AM CDT 11:00 PM CDT Narrative [facility] 2 - 01/09/2021 9:06 PM CDT Performed at: ??01 - [facility] [address] ??[id number] Web Marketing Strategist: Severiano Rao MD, Phone: ?? [phone] Performed at: ??02 - [facility] [address] ??[id number] Web Marketing Strategist: Severiano Rao MD, Phone: ?? [phone] Prachi Duran MD [facility] ORDERABLES Performing Organization Address City/[facility] Phon e Number [facility] 2 [facility] 1 HEPATIC FUNCTION PANEL 7 ([facility]) (01/06/2021 10:10 AM CDT) P athologist Signature Protein Total 6.5 6.0 - 8.5 [facility] 1 ([facility]) g/dL Albumin 4.4 3.8 - 4.8 [facility] 1 ([facility]) g/dL Bilirubin Total 0.2 0.0 - 1.2 [facility] 1 ([facility]) mg/dL Bilirubin Direct <0.10 0.00 - [facility] 1 ([facility]) 0.40 mg/dL Alkaline 63 44 - 121 [facility] 1 Phosphatase IU/L ([facility]) Comment: ?Please note refer ence interval change AST (SGOT) ([facility]) 21 0 - 40 IU/L [facility] 1 ALT (SGPT) ([facility]) 29 0 - 32 IU/L [facility] 1 Specimen Anatomical Collection Method Collection Time Receive d Time (Source) Location / / Volume Laterality Blood 01/06/2021 10:10 01/05/2021 AM CDT 11:00 PM CDT Narrative [facility] 1 - 01/09/2021 9:06 PM CDT Performed at: ??01 - [facility] [address] [place], [place] ??[address] Web Marketing Strategist: Severiano Rao MD, Phone: ?? [phone] Prachi Duran MD [facility] ORDERABLES Performing Organization Address City/State/ZIP Code Phon e Number [facility] 1 HBV EVALUATION PROFILE ([facility]) (01/06/2021 10:10 AM CDT) [facility] gist Method Time Signature Hepatitis B Negative Negative [facility] 1 Surface Antigen Screen ([facility]) Hepatits B Core Negative Negative [facility] 1 Total Antibody ([facility]) Hepatitis B Non Reactive [facility] 1 Surface Antibody Qualitative ([facility]) Comment: ?Non Reactive: Incon sistent with immunity, ?less than 10 mIU/mL ?Reactive: ? Con sistent with immunity, ?greater than 9.9 mIU/mL Specimen Anatomical Collection Method Collection Time Receive d Time (Source) Location / / Volume Laterality Blood 01/06/2021 10:10 01/05/2021 AM CDT 11:00 PM CDT Narrative [facility] 1 - 01/09/2021 9:06 PM CDT Performed at: ??01 - [facility] [place] [address] [place], [place] ??[address] Web Marketing Strategist: Severiano Rao MD, Phone: ?? [phone] Prachi Duran MD [facility] ORDERABLES Performing Organization Address City/State/ZIP Code Phon e Number [facility] 1 (ABNORMAL) CBC/DIFFERENTIAL WITH PLATELET ([facility]) (01/06/2021 10:10 AM CDT) [facility] gist Method Time Signature WBC ([facility]) 5.2 3.4 - [facility] 1 10.8 x10E3/uL RBC ([facility]) 4.51 3.77 - [facility] 1 5.28 x10E6/uL Hemoglobin 15.0 11.1 - [facility] 1 ([facility]) 15.9 g/dL Hematocrit 45.1 34.0 - [facility] 1 ([facility]) 46.6 % MCV ([facility]) 100 (H) 79 - 97 [facility] 1 fL MCH ([facility]) 33.3 (H) 26.6 - [facility] 1 33.0 pg MCHC ([facility]) 33.3 31.5 - [facility] 1 35.7 g/dL RDW ([facility]) 11.9 11.7 - [facility] 1 15.4 % Platelets 286 150 - 450 [facility] 1 ([facility]) x10E3/uL Neutrophils 57 Not [facility] 1 ([facility]) Estab. % Lymphocytes 35 Not [facility] 1 ([facility]) Estab. % Monocytes 5 Not [facility] 1 ([facility]) Estab. % Eosinophils 2 Not [facility] 1 ([facility]) Estab. % Basophils 1 Not [facility] 1 ([facility]) Estab. % Neutrophils 3.0 1.4 - 7.0 [facility] 1 Absolute x10E3/uL ([facility]) Lymphocytes 1.8 0.7 - 3.1 [facility] 1 Absolute x10E3/uL ([facility]) Monocytes 0.3 0.1 - 0.9 [facility] 1 Absolute x10E3/uL ([facility]) Eosinophils 0.1 0.0 - 0.4 [facility] 1 Absolute x10E3/uL ([facility]) Basophils 0.1 0.0 - 0.2 [facility] 1 Absolute x10E3/uL ([facility]) Immature 0 Not [facility] 1 Granulocytes Estab. % ([facility]) Immature 0.0 0.0 - 0.1 [facility] 1 Granulocytes x10E3/uL Absolute ([facility]) Specimen Anatomical Collection Method Collection Time Receive d Time (Source) Location / / Volume Laterality Blood 01/06/2021 10:10 01/05/2021 AM CDT 11:00 PM CDT Narrative [facility] 1 - 01/09/2021 9:06 PM CDT Performed at: ??01 - [facility] [address] ??[id number] Web Marketing Strategist: Severiano Rao MD, Phone: ?? [phone] Prachi Duran MD [facility] ORDERABLES Performing Organization Address City/State/ZIP Code Phon e Number [facility] 1 documented in this encounter Visit Diagnoses Diagnosis Multiple sclerosis (HCC) - Primary Multiple sclerosis Migraine syndrome Migraine with aura, without mention of i ntractable migraine without mention of status migrainosus documented in this encounter Care Teams Compounder Sterile Products Relationship Specialty Start Date End Date Dianne Hewitt PA PCP - General 12/02/20 [address] [place] [address] [facility] PCP - Primary Care Clinic 1 [place] [address] [place] [address] documented as of this encounter
[2022-01-20 09:06] LABS: PCR FLU A Negative PCR FLU A (Negative); PCR FLU B Negative PCR FLU B (Negative)
[2022-01-20 09:23] LABS: SARS PCR* POSITIVE SARS-CoV-2 (Negative)
[2022-01-20 09:30] VITALS: BP 115/64; PULSE 73; RESP 16; TEMP 36.6; O2SAT 98
[2022-01-20] MEDS: KETOROLAC 30 MG/ML inj IM (10:10)
[2022-01-20 10:29] LABS: Creatinine, Point-of-Care* 0.9 mg/dl (0.6-1.3)
== END 2022-01-20 11:16 | disposition home or self-care (01) ==
PROVIDERS: Emergency Provider Family Medicine; PCP Physician Assistant Medical
DX: U07.1 COVID-19 (principal)
CPT/HCPCS: 71045; 82565; 87631; 96372; 99284; J1885

== ENCOUNTER 2022-07-07 19:01 | Emergency (ER) | payer MEDICAID, SELFPAY ==
[2022-07-07 19:24] VITALS: BP 136/83; PULSE 90; RESP 16; TEMP 36.7; O2SAT 98; BMI 34.4
--- NOTE | 2022-07-07 19:31 | ED_ITS ---
HPI - General Adult General Time Seen by Provider: 19:31 Date Seen: 07/07/22 Chief complaint: Lower Extremity Swelling Stated complaint: L knee Pain Time Seen by Provider: 07/07/22 19:30 Source: patient and RN notes reviewed Mode of arrival: ambulatory Limitations: no limitations History of Present Illness HPI narrative: Patient is a 47-year-old female with underlying MS coming in with left leg pain. It radiates from her knee into her calf up into the thigh. It hurts in the leg with walking primarily from the knee. This knee has had surgery before. She states she has bone on bone in this knee and had a bone chip in there that they did remove. She has not had any thromboembolic disease before, no prior history of Larose cyst. She has had no fevers chills. She has maybe had a little dry cough and a little ear popping on the right. She is limited on her right side from her MS and thus is worried about this left knee. She states she had an appointment in clinic tomorrow but they called and canceled it in told her to come to the ER. She is not short of breath, no chest pain. Her kids are sick at home. She is not feeling overtly sick however. No trauma. Need just really started aching on Monday of this week and has gotten worse. She feels like it swells around the knee and then the leg will swell. She has been elevating this leg for hours now, feels the swelling is down. Hurts a lot behind this left knee. She did just start a new biologic for her MS. She ultimately admits that the clinic was worried about a blood clot in her leg. Related Data Home Medications Medication Instructions Recorded Confirmed famotidine 20 mg tablet 20 mg PO DAILY 01/20/22 01/20/22 hydrochlorothiazide 25 mg tablet mg 01/20/22 hydrochlorothiazide 50 mg tablet 50 mg PO DAILY 01/20/22 01/20/22 lisinopril 10 mg tablet 10 mg PO DAILY 01/20/22 01/20/22 ofatumumab 20 mg/0.4 mL 20 mg subcut .monthly 01/20/22 01/20/22 subcutaneous pen injector (Kesimpta Pen) sertraline 100 mg tablet 100 mg PO DAILY 01/20/22 01/20/22 tizanidine 2 mg tablet 2 mg PO Q8H PRN 01/20/22 01/20/22 tizanidine 4 mg tablet 4 mg PO HS PRN muscle spasticity 01/20/22 01/20/22 Previous Rx's Medication Instructions Recorded nirmatrelvir 300 mg (150 mg See Rx Instructions PO .COMPLEX 01/20/22 x2)-ritonavir 100 mg tablet,dose #30 ea pack(EUA) (Paxlovid) Allergies Allergy/AdvReac Type Severity Reaction Status Date / Time acetaminophen [From Percocet] Allergy Verified 07/07/22 19:28 oxycodone Allergy Verified 07/07/22 19:28 Review of Systems Status of ROS: Reports: 6 or more systems reviewed and unremarkable except as noted in History and below PFSH [facility] Social History Smoking Status: Former smoker Do you use any of these nicotine containing products: None Second hand tobacco smoke exposure: No How often do you have a drink containing alcohol: monthly or less How often do you have six or more drinks on one occasion: Never AUDIT-C Alcohol total score: 1 Non-prescribed substance use: denies use Exam Const: Vital Signs, click to edit/add: Vital Signs - 24 hr 07/07/22 19:24 Temperature 98.0 F Pulse Rate [Pulse Oximeter] 90 Respiratory Rate 16 Blood Pressure [Ri ght Upper Arm] 136/83 Pulse Oximetry 98 Oxygen Delivery Me thod Room Air Documenting provider has reviewed patient's vital signs: yes Common normals: no apparent distress, oriented x3, no limitations, healthy appearing and alert General appearance: cooperative, comfortable, well kempt and well developed Nutritional appearance: overweight Other: Antalgic gait favoring left leg when she gets up to walk. Note no lower extremity edema or pitting edema. Her lower extremities are bit thicker but not edematous. No overlying skin changes. Negative Homans although she states she feels pain radiating into the calf. She does not have pain on active testing. She has some palpable pain in the antecubital fossa on the left but I do not feel any mass. I do not feel any joint effusion. She complains of pain on range of motion. HENMT: Common normals: normocephalic, head/scalp atraumatic, hearing grossly normal bilaterally, external ears normal and TM's normal bilaterally Head and scalp: normocephalic and atraumatic External ear: external ears normal Tympanic membrane: TM's normal bilaterally Eye: Common normals: PERRL, EOMs intact bilaterally, conjunctivae normal and no scleral icterus Conjunctiva: conjunctiva(e) normal Pupil: PERRL Resp: Common normals: normal respiratory effort, no retractions, no use of accessory muscles and clear to auscultation bilaterally Auscultation: clear to auscultation bilaterally Cardio: Common normals: regular rate, regular rhythm, S1 normal heart sound, S2 normal heart sound, no gallops, no clicks and no murmurs Rate: regular rate Rhythm: regular rhythm Heart sounds: S1 normal and S2 normal Neuro: Common normals: oriented x3 Sensorium/orientation: alert Psych: Appearance: well kempt Course Course Hospital Course: Will obtain venous ultrasound of this left lower extremity. Thromboembolic disease is a possibility, it could be severe osteoarthritis from the knee itself, could possibly be a Larose cyst. Does not seem to be emanating from her back and thus do think it is a primary knee problem if the ultrasound is negative for DVT. Reevaluation(s) Reevaluation #1: Reviewed with patient that the preliminary ultrasound is negative for DVT or any Larose cyst. She states she knows that she has been told she has bone on bone in her left knee, does qualify for a knee replacement but they do not want to cause issues with her MS. She has a walker at home. We did discuss doing x-rays but it is not going to change our management here. She has had no trauma. It would be my thought that her next step would be to follow up with somebody that could potentially do a joint injection. She states she has had that before. She wonders about any residual cartilage tear in there. That would be discussion she could have with an orthopedist. If she really does have such advanced arthritis, than doing surgery for any small residual cartilage tear may not be something that is even considered. She can have this discussion with an orthopedist at follow-up. We have discussed Tylenol and [id number] medicines for pain management, using her walker, trying ice or heat. She states heat bothered it, thus would recommend ice. Time: 20:25 Vital Signs Vital signs: Initial Vital Signs Temperature 98.0 F 07/07/22 19:24 Temperature Source Temporal Artery Scan 07/07/22 19:24 Pulse Rate 90 07/07/22 19:24 Pulse Rhythm Regular 07/07/22 19:24 Pulse Strength 3+ Normal 07/07/22 19:24 Respiratory Rate 16 07/07/22 19:24 Blood Pressure 136/83 07/07/22 19:24 Blood Pressure Mean 100 07/07/22 19:24 Blood Pressure Position Sitting 07/07/22 19:24 Pulse Oximetry 98 07/07/22 19:24 Oxygen Delivery Method Room Air 07/07/22 19:24 Vital Signs Temperature 98.0 F 07/07/22 19:24 Pulse Rate 90 07/07/22 19:24 Respiratory Rate 16 07/07/22 19:24 Blood Pressure 136/83 07/07/22 19:24 Pulse Oximetry 98 07/07/22 19:24 Oxygen Delivery Method Room Air 07/07/22 19:24 Temperature 98.0 F 07/07/22 19:24 Pulse Rate 90 07/07/22 19:24 Respiratory Rate 16 07/07/22 19:24 Blood Pressure 136/83 07/07/22 19:24 Pulse Oximetry 98 07/07/22 19:24 Oxygen Delivery Method Room Air 07/07/22 19:24 Medical Decision Making Imaging Data Venous US: Attestation: I have reviewed the pertinent imaging results. Radiologist's impression: Patient: AMBAR GUZMÁN Facility:?[facility] Patient ID:?[id number] Site Patient ID:?[id number]. Site :?[id number] Study:?US Extremity Left LEV-07/07/2022 8:29:58 PM Ordering Physician:?Kylah Baltazar Final Report: INDICATION: Leg pain and swelling. TECHNIQUE: Ultrasound venous duplex lower left extremity. Compression venous exam was performed using gonsales-scale, color Doppler, and spectral Doppler analysis. COMPARISON: None. FINDINGS: Deep veins: Sonographic imaging demonstrates the left common femoral, deep femoral, superficial femoral, popliteal, posterior tibial and the contralateral right common femoral veins to be fully compressible with normal color Doppler blood flow. Superficial veins: Greater saphenous vein is fully compressible. No popliteal cyst. IMPRESSION: Normal left lower extremity venous ultrasound, no sign of deep venous thrombosis. Dictated by Yann Anderson MD @ 07/07/2022 8:33:28 PM (Electronic Signature) Critical Care Time Critical Care Time Critical Care Time: No Discharge Plan Discharge Clinical Impression: Acute pain of left knee Patient Disposition: Home, Self-Care Condition: Stable Instructions: Osteoarthritis (ED), Knee Pain (ED) Additional Instructions: Use walker for stability with ambulation. Can use [id number] medicines that you normally would for pain management, follow bottle dosing directions. Apply ice and elevate to help decrease pain and swelling. Call the Orthopedic Clinic at [phone] to be further evaluated for your knee pain. If you need a referral for this, may need to follow-up with your primary care provider 1st. Activity Level: Activity as Tolerated Prescriptions: No Action famotidine 20 mg tablet 20 mg PO DAILY hydrochlorothiazide 25 mg tablet hydrochlorothiazide 50 mg tablet 50 mg PO DAILY lisinopril 10 mg tablet 10 mg PO DAILY Patient Comments: TAKE ONE TABLET BY MOUTH EVERY DAY sertraline 100 mg tablet 100 mg PO DAILY tizanidine 2 mg tablet 2 mg PO Q8H PRN Patient Comments: TAKE ONE TABLET BY MOUTH EVERY 8 HOURS NEEDED FOR MUSCLE SPASM. USE THE 2MG TABLET DURING THE DAY FOR DECREASED SEDATION, 4MG AT BEDTIME tizanidine 4 mg tablet 4 mg PO HS PRN (Reason: muscle spasticity) Kesimpta Pen 20 mg/0.4 mL pen injector 20 mg SUBCUT .monthly Paxlovid (EUA) 300 mg (150 mg x 2)-100 mg tablets,dose pack See Rx Instructions .ROUTE .COMPLEX Qty: 30 0RF Rx Instructions: take TWO 150 mg tablets of nirmatrelvir with ONE 100 mg tablet of ritonavir twice daily for 5 days Follow Up/Referrals: Dianne Hewitt PA-C [Primary Care Provider] - Stand Alone Forms: [employer] Info Instructions
--- NOTE | 2022-07-07 19:36 | CRLHL7_ITS ---
For Patients: As a result of the Century Cures Act, medical imaging exams and procedure reports are released immediately into your electronic medical record. You may view this report before your referring provider. If you have questions, please contact your health care provider. INDICATION: Leg pain and swelling. TECHNIQUE: Ultrasound venous duplex lower left extremity. Compression venous exam was performed using gonsales-scale, color Doppler, and spectral Doppler analysis. COMPARISON: None. FINDINGS: Deep veins: Sonographic imaging demonstrates the left common femoral, deep femoral, superficial femoral, popliteal, posterior tibial and the contralateral right common femoral veins to be fully compressible with normal color Doppler blood flow. Superficial veins: Greater saphenous vein is fully compressible. No popliteal cyst. IMPRESSION: Normal left lower extremity venous ultrasound, no sign of deep venous thrombosis. Dictated by Yann Anderson MD @ 07/07/2022 8:33:28 PM (Electronically Signed)
== END 2022-07-07 20:38 | disposition home or self-care (01) ==
PROVIDERS: Emergency Provider Family Medicine; PCP Physician Assistant Medical
DX: M25.562 Pain in left knee (principal); G35 Multiple sclerosis
CPT/HCPCS: 93971; 99283

== ENCOUNTER 2022-10-11 14:36 | Outpatient (CLI) | payer MEDICAID, SELFPAY | END 2022-10-11 14:37 | disposition home or self-care (01) | LOC: RAD 14:37 | PROVIDERS: PCP Physician Assistant Medical; Visit Provider Family Medicine | DX: M17.12 Unilateral primary osteoarthritis, left knee (principal); M25.562 Pain in left knee | CPT/HCPCS: 64454 ==

== ENCOUNTER 2022-10-25 13:10 | Outpatient (CLI) | payer MEDICAID, SELFPAY | END 2022-10-25 13:11 | disposition home or self-care (01) | LOC: INJ CL 13:11 | PROVIDERS: PCP Physician Assistant Medical; Visit Provider Family Medicine | DX: M17.12 Unilateral primary osteoarthritis, left knee (principal); M25.562 Pain in left knee; G89.29 Other chronic pain | CPT/HCPCS: 64624; J3010 ==

== ENCOUNTER 2024-11-06 11:18 | Emergency (ER) | payer OTHER, BC, SELFPAY ==
--- OUTSIDE RECORDS SUMMARY | 2024-10-15 10:00 | XMS_ITS | Encounter Summary ---
Author Organization [facility] Address [address] [place] [address] Care Team Providers Care Manager Administrative Services Name Role Phone Dianne Hewitt Primary Care Provider Prachi Duran MD Unavailable [phone] Reason for Visit * Reason Comments Consultation Blurry vision * Consultation (Routine) - Pending Review Specialty Diagnoses / Procedures Referred By Vimal munroe Referred To Contact Neurology Diagnoses Blurry vision Pilar Mojica, SENIOR COMPLIANCE ANALYST [address] [place] [address] Phone: tel: fax: Natalie Barron MD [address] [place] [address] [address] Phone: tel: fax: Referral ID Status Reason Start Date Expiration Date Visits Requested Visits Authorized [id number] Pending Review Specialty Services Required 04/18/2024 1 1 Encounter Details Date Type Department Care Team (Late st Contact Info) Description 10/15/2024 10:00 AM CDT Office Visit [facility] - [address] [address] Natalie Barron MD [address] [place] [address] [id number] Multiple sclerosis (HCC) (Primary Dx); Visual disturbance; Refractive error; Dry eyes; Cataract of both eyes, unspecified cataract type Social History Tobacco Use Types Packs/Day Years Used Date Smoking Tobacco: Never Passive Smoke Exposure: Never Smokeless Tobacco: Never Alcohol Use Standard Drinks/Week Comments Not Currently 0 (1 standard drink = 0.6 oz pur e alcohol) Comments No Sex and Gender Information Value Date Recorded Sex Assigned at Female 12/30/2020 9:08 AM CDT Legal Sex Female 3:20 PM CDT Gender Identity Female 12/30/2020 9:08 AM CDT Sexual Orientation Straight 12/30/2020 9: 08 AM CDT documented as of this encounter Progress Notes * Natalie Barron MD - 10/15/2024 10:00 AM CDT Neuro-ophthalmology Clinic Note HPI: This is a very pleasant 49 y.o.year old female with history of Back pain, MS, RA, vitamin D deficiency, depression, GERD, HTN, migraine, OAB, osteoarthritis and others who presents today for Consultation (Blurry vision) . Patient is a kind referral from my colleague Pilar Mojica NP. The patient reports the onset of blurry vision approximately 6 months ago. She occasionally experiences double vision, which resolves when she closes both eyes. She has not tried closing just one eyeto assess for resolution. She describes the double vision as vertical (up-and-down) and notices it most when watching TV. She denies issues while using the computer, though she sometimes experiences double vision while driving.Her last eye exam was 2 years ago, at which time she obtained new glasses. She has no history of optic neuritis. She also reports the onset of motion sickness since her multiple sclerosis (MS) diagnosis. She experiences dry eyes and uses Systane, although not consistently. Over the past couple of years, she has undergone multiple surgeries, including: Left knee surgery in [address] Daigle in 2023 Appendix surgery in 2023 Right knee surgery in 2019 Lumbar spine surgery planned for 2024 Regarding her MS, she cannot recall her last MS flare. Her MS symptoms began in 2017, and she is currently being treated with Brumvi . PMH: Patient Active Problem List Diagnosis Back pain Multiple sclerosis (HCC) H/O total hysterectomy Rheumatoid arthritis (HCC) Vitamin D deficiency Multiple sclerosis (HCC) Multiple sclerosis, relapsing-remitting (HCC) Class 2 obesity in adult Depression GERD (gastroesophageal reflux disease) HTN (hypertension) History of total knee replacement Hx of migraines OAB (overactive bladder) Osteoarthritis of left knee Acquired absence of both cervix and uterus Acute appendicitis Hypokalemia Lumbar spondylosis PSH: Past Surgical History: Procedure Laterality Date HX APPENDECTOMY HX HYSTERECTOMY HX KNEE REPLACMENT Right 2023 ORTHOPEDICS Left 2022 knee replacement FH: Family History Problem Relation Name Age of Onset Migraines Other Asthma Other High Blood Pressure Other Social history: Social History Socioeconomic History Marital status: Spouse name: Not on file Number of children: Not on file Years of education: Not on file Highest education level: Not on file Occupational History Not on file Tobacco Use Smoking status: Never Passive exposure: Never Smokeless tobacco: Never Substance and Sexual Activity Alcohol use: Not Currently Drug use: Never Sexual activity: Not on file Other Topics Concern Not on file Social History Narrative Not on file Social Drivers of Health Financial Resource Strain: Low Risk (03/08/2024) [facility] Financial Resource Strain Difficulty of Paying Living Expenses: 3 Difficulty of Paying Living Expenses: Not on file Food Insecurity: No Food Insecurity (03/11/2024) [facility] Food Insecurity Do you worry your food will run out before you are able to buy more?: 1 Transportation Needs: No Transportation Needs (03/11/2024) Received from [facility] Transportation Needs Does lack of transportation keep you from medical appointments?: 1 Does lack of transportation keep you from work, meetings or getting things that you need?: 1 Physical Activity: Not on file Stress: Not on file Social Connections: Socially Integrated (03/11/2024) Received from [facility] [facility] Social Connections Do you often feel lonely or isolated from those around you?: 0 Intimate Partner Violence: Not on file Housing Stability: Low Risk (03/07/2024) Received from [employer] Housing Stability 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 Cholecalciferol, Vitamin D3, 5,000 unit (125 mcg) oral tablet Take 1 tablet (125 mcg) by mouth oncedaily. cyanocobalamin 1,000 mcg oral tablet Take 1 tablet (1,000 mcg) by mouth once daily. cyclobenzaprine (FLEXERIL) 10 mg oral tablet Take 1 tablet (10 mg) by mouth twice a day. famotidine (PEPCID) 20 mg oral tablet Take 1 tablet (20 mg) by mouth twice a day. gabapentin (NEURONTIN) 300 mg oral capsule Take 1 capsule (300 mg) by mouth three times a day. 270 capsule 1 hydroCHLOROthiazide (HYDRODIURIL) 50 mg oral tablet Take 1 tablet (50 mg) by mouth once daily. methocarbamoL (ROBAXIN) 500 mg oral tablet Take 1 tablet (500 mg) by mouth four times a day. 60 tablet 1 senna-docusate (SENNA-S) 8.6-50 mg oral tablet Take 1 tablet by mouth once daily. sertraline (ZOLOFT) 100 mg oral tablet Take 1 tablet (100 mg) by mouth once daily. Trospium 60 mg oral extended release capsule 24 HR Take 1 capsule (60 mg) by mouth once daily. 90 capsule 3 ublituximab-xiiy (BRIUMVI) 25 mg/mL IV Soln by Intravenous route. Twice a year next July 01, 2024 ubrogepant 100 mg oral Tab Take 100 mg by mouth as directed. For Migraine. Can repeat after 2 hoursif needed. No more than 4 pills per week. 48 Tablets for 90 days supply 48 tablet 3 No current facility-administered medications on file prior to visit. Allergies: Allergies Allergen Reactions Ibuprofen Swelling, lips/tongue Pt states she reacts with PO ibuprofen, causes her entire body to swell. Adhesive Tape-Silicones Rash Cymbalta [Duloxetine] Tecfidera [Dimethyl Fumarate] Exam: GENERAL: Showed a well-developed, well-nourished, comfortable sitting without distress. HEENT: normocephalic, atraumatic. NECK: supple,no nuchal rigidity LUNGS: No stress with room air HEART: Regular rhythm. No pitting edema ABDOMEN: no distention EXTREMITIES: Showed no deformity or edema. NEURO Examination: Mental status: AO X 4. Normal speech, language, memory, attention, fund of knowledge. CN nerves: See ophthalmology exam Face is symmetrical, no facial droop. Motor exam:Drift - None, Normal tone, bulk and strength Sensory exam: Light touch : Patient has subjective tingling numbness on the left side but intact with light touch Coordination: Finger to nose: Right dysmetria Romberg: Negative Gait: Tandem: Intact Toe: Intact Heel: Intact Ophthalmology exam: Distance VA: (Snellen with glasses) OD 20/25 OS 20/40 Current glasses OD -0.50+0.75x 008 ADD: +1.00 OS -0.50+0.75x 004 ADD: +1.00 Refraction: Distance distance BCVA near add OD plano +0.75x 022 20/20 +1.75 OS +0.50 +0.75x 007 20/20 +1.75 Color vision OD: OS: Contrast sensitivity: OD 1.25% OS 1.25% Red Desaturation test: OD 100% OS 100% Confrontation field OD: Full OS: Full Pupil: PERRL-APD Extraocular movement: OD full OS full Nystagmus: No Fixation: CSM Singleton Ian exam: 2E 2E 1RH 2E 1LH 2E 1LH 0.5X 0.5LH External OD: WNL OS: WNL Slit lamp: OD Lid & Lash: clean and clear Conj : clear Cornea: + SPK more on the right eye than left eye AC: deep and quiet Iris: intact Jevon: +1 NS OS Lid & Lash: clean and clear Conj : clear Cornea: + SPK AC: deep and quiet Iris: intact Jevon: +1 NS Fundus exam: non dilation (deferred as we do not have reversal agent and patient has long way of driving) OD: Optic disc: pink, sharp margin C/D: 0.2/0.2 Macula: clear Vessels: WNL OS: Optic disc: pink, sharp margin C/D: 0.2/0.2 Macula: clear Vessels: WNL Imaging: I have personally reviewed the patient's imaging MRI brain with without contrast 12/14/2023 Scattered T2 hyperintense white matter lesions intracranially compatible with the provided diagnosis of multiple sclerosis, stable since the prior exam dated 12/14/2022. Observations include: 1. T2 Lesion Richmond: Mild, stable. 2. T1 Lesion Richmond: Mild, stable. 3. Lesion Enhancement: None. 4. Parenchymal Loss: Localized right superior/middle cerebellar peduncle atrophy, stable. Approximately 10 T2 hyperintense subcortical and periventricular white matter lesions are demonstrated. More subtle involvement along the corpus callosum and temporal lobes is seen. Dominant lesion is at the right superior to middle cerebellar peduncle. Minor left deep cerebellar white matter involvement as well. Since prior exam, no new T2 hyperintense white matter lesion is identified Assessment and Plan 49 y.o.year old female with history of Back pain, MS, RA, vitamin D deficiency, depression, GERD, HTN, migraine, OAB, osteoarthritis and others who presents today for Consultation (Blurry vision), double vision noticed about 6 months ago affecting both distance and near. She also has noticed doublevision but is not clear is binocular or monocular. Today, her best-corrected visual acuity is 20/20 in each eye. She has refractive error changes for the distance and also requires increased add power for near tasks. She demonstrates normal color vision, contrast sensitivity, red desaturation, confrontation young, extraocular movements, and pupillary responses.Singleton ian testing does not reveal any significant eye deviation. Slit-lamp examination shows mild cataracts in both eyes and bilateral dry eyes, more pronounced in the right eye than the left. The non-dilated fundus examination is unremarkable. Due to her MS history, we have also obtained Avery visual field 30-2 and OCT's Avery visual field 30-2 OD: Increased fixation loss , normal, MD 0.43 OS: Increased fixation loss, normal, MD -1.06 OCT GCL OD: Good signal, temporal borderline thinning, normal average thickness 76 ??m OS: Good signal, nasal thinning, normal average thickness 74 ??m OCT RNFL OD: Normal, average thickness 91 ??m OS: Normal, average thickness 91 ??m Blurry Vision due to refractive error A new glasses prescription has been provided. The patient has mild cataracts in both eyes, but they are not visually significant at this time. The patient also has bilateral dry eyes (more on the right), but this does not prevent best-corrected visual acuity of 20/20 in each eye, and therefore is unlikely to be a major contributor to the blurry vision. Visual field and OCT RNFL are normal. Mild OCT GCL changes are most likely due to retrograde degeneration related to a left temporal lobe lesion affecting the visual pathway, consistent with the patient???s MS history, based on personal review. Double Vision It remains unclear whether the symptom is binocular or monocular. Singleton ian testing shows no significant ocular deviation, suggesting the double vision is most likely monocular. No prism correction is needed at this time. Cataracts Mild in both eyes and not significant enough to warrant surgery at this point. Bilateral Dry Eyes (OD > OS) Recommend the patient use lubricating eye drops more consistently to manage symptoms. I will see her back as needed. Thank you for getting me involved in this patient's care. Natalie Barron MD Neuro-ophthalmology [facility] Neurology [facility] 2024: Documentation of current mediations reviewed every visit 2. Does patient use tobacco? No 3. Gait and balance are normal 4. Does patient have Dementia? No I spent _70__ minutes on the date of the encounter with for this patient consisting of activities before, during and after the encounter including time spent: Preparing to see the patient including review of the chart, tests, and/or outside records. Reviewing and verifying information regarding the chief complaint and history already recorded by ancillary staff and/or the patient. Obtaining history and performing medically appropriate evaluation. Counseling the patient regarding the diagnosis, additional diagnostic considerations, possible diagnostic testing, and any potential options for therapy, including conservative/lifestyle measures and pharmacotherapy including risks/benefits, side effects and adverse effects. I also counseled the patient on how to contact me with any questions or concerns, new or worsening symptoms. Ordering medications, tests, and/or procedures, and documenting the chart. The time of visual field, OCT are not included. The OCT is not charged. documented in this encounter Plan of Treatment Scheduled Referrals Name Type Priority Associated Diagnoses Orde r Schedule REFERRAL NEUROLOGY Referral Routine Blurry vision Ordered: 04/18/2024 documented as of this encounter Visit Diagnoses Diagnosis Multiple sclerosis (HCC)- Primary Multiple sclerosis Visual disturbance Unspecified visual disturbance Refractive error Unspecified disorder of refraction and accommodation Dry eyes Tear film insufficiency, unspecified Cataract of both eyes, unspecified cataract type documented in this encounter Care Teams Manager Administrative Services Relationship Specialty Start Date End Date Dianne Hewitt PA [address] [place] [address] PCP - General 12/02/20 Prachi Duran MD [address] [place] [address] Neurology 05/05/22 documented as of this encounter
[2024-11-06 11:20] VITALS: BP 130/83; PULSE 77; RESP 16; TEMP 35.7; O2SAT 99; BMI 37.3
--- OUTSIDE RECORDS SUMMARY | 2024-11-06 11:20 | XMS_ITS | Clinical Summary ---
Author Organization [facility] Address [address] [place] [address] Care Team Providers Care Condenser Tester Name Role Phone Unavailable Primary Care Provider Unavailabl e Source Comments Patient records contain information from all sites at [facility]. For routine questions regarding patient records, call [phone] during business hours, M-F 8:00 AM - 5:00 PM Central Time. Record requests for emergency care only can be directed to [phone] at any time.[facility] Allergies Active Allergy Reactions Criticality Noted Date Comments Dimethyl Fumarate Other (see comments) 01/07/20 Duloxetine Other (see comments) 01/06/2021 Medications lisinopriL (PRINIVIL,ZESTRI L) 20 mg tablet Take 1 tablet by mouth daily. 10/02/2020 Active hydroCHLOROthiaz jarrod (HYDRODIURIL) 25 mg tablet Take 25 mg by mouth. 10/23/2020 Active cyclobenzaprine (FLEXERIL) 10 mg tablet Take 10 mg by mouth. 10/23/2020 Active cyanocobalamin (VITAMIN B12) 1,000 mcg tablet Take 1,000 mcg by mouth. 07/24/2020 Active cholecalciferol (VITAMIN D3) 125 mcg (5,000 Unit) tablet Take 5,000 Units by mouth. 07/24/2020 Active cetirizine (ZyrTEC) 10 mg tablet Take 10 mg by mouth. 08/31/2020 Active famotidine (PEPCID) 20 mg tablet Take 20 mg by mouth 2 (two) times a day. 07/04/2022 Active sertraline (ZOLOFT) 100 mg tablet Take 100 mg by mouth. 08/25/2021 Active tiZANidine (ZANAFLEX) 4 mg tablet TAKE ONE TABLET BY MOUTH EVERY 8 HOURS NEEDED FOR MUSCLE SPASM Strength: 4 mg 11/18/2020 Active ubrogepant (Ubrelvy) 100 mg tablet tablet Take 100 mg by mouth 2 (two) times a day as needed. 08/11/2020 Active ublituximab-xiiy (Briumvi) 25 mg/mL solution Infuse into a venous catheter. 06/01/2022 Active tolterodine (DETROL LA) 2 mg 24 hr capsule Take 2 mg by mouth daily. 05/18/2022 Active Active Problems Problem Noted Date Diagnosed Date Pain Left Lower Quadrant 10/11/2023 Pain Back 05/20/2022 Acquired Absence Of Both Cervix And Uterus 08/11 Arthritis Rheumatoid 07/24/2016 Multiple Sclerosis 07/24/2016 Deficiency Vitamin D 05/18/2012 Immunizations Immunization Administration Dates Next Due H1N1 All Forms 03/01/2009,02/27/2009 HepB, Unspecified 07/15/1998 Influenza, Unspecified 01/29/2009,01/12/2009,,02/14/2004 Td (Adult), adsorbed 09/01/2003 Social History Tobacco Use Types Packs/Day Years Used Date Smoking Tobacco: Never Assessed Comments Unknown Sex and Gender Information Value Date Recorded Sex Assigned at Not on file 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 Gender Identity Not on file Sexual Orientation Not on file Last Filed Vital Signs Vital Sign Reading Time Taken Comments Blood Pressure 131/85 10/11/2023 1:51 PM CDT Pulse 76 10/11/2023 1:51 PM CDT Temperature - - Respiratory Rate - - Oxygen Saturation - - Inhaled Oxygen Concentration - - Weight 101 kg (223 lb 1.7 oz) 10/11/2023 1:51 PM CDT Height - - Body Mass Index - - Plan of Treatment Health Maintenance Due Date Last Done Comments CT Colonography 1976 Cologuard 1976 Colonoscopy 1976 Colorectal Cancer Screening 1976 FIT 1976 HIV Screening 1976 Hepatitis C Screening 1976 Pneumococcal vaccine (0-49 years) (1 of 2 - PCV) 1995 Zoster Vaccines (1 of 2) 1995 Hepatitis B Vaccines (2 of 3 - 19+ 3-dose series) 08/12/1998 07/15/1998 COVID-19 Vaccine (5 - 2023- season) 2023 06/01/2022, 03/17/2021, 07/26/2020, Additional history exists Depression Screening (Annual PHQ-2) 04/17/2024 Creatinine Level (Kidney Function Test) 08/10/2024 08/11/2023, 08/10/2023, 08/02/2023, Additional history exists Potassium Level 08/10/2024 08/11/2023, 07/17, 08/11/2023, Additional history exists Sodium Level 08/10/2024 08/11/2023, 07/17, 08/02/2023, Additional history exists Mammogram 09/25/2024 09/26/2023, 09/15, 09/14/2022, Additional history exists Influenza Vaccine (#1) 2025 , 01/12/2021, 01/14/2020, Additional history exists Fasting Glucose for Diabetes Screening 08/01/2026 08/02/2023, 07/14/2023, 06/27/2023, Additional history exists Lipid (Cholesterol) Screening 06/01/2027 06/01/2022 DTaP,Tdap,and Td Vaccines (2 - Td or Tdap) 08/26/2031 08/25/2021, 09/01/2003 HPV Vaccines Aged Out No longer eligi ble based on patient's age to complete this topic IPV Vaccines Aged Out No longer eligi ble based on patient's age to complete this topic Insurance [employer]
--- OUTSIDE RECORDS SUMMARY | 2024-11-06 11:21 | XMS_ITS | Clinical Summary ---
Author Organization [facility] Address [address] [place] [address] Care Team Providers Care Privacy Officer Name Role Phone Dianne Hewitt Primary Care Provider Lisa Oneal RN Unavailable Unavailab Celina Urena PharmD Unavailable [phone] Allergies Active Allergy Reactions Criticality Noted Date Comments Adhesive Tape-Silicones Rash Medium 03/08/2023 Dimethyl Fumarate Bleeding,Vomiting High 01/06/2021 Bleeding and vomiting Duloxetine Nausea Only,Diaphoresis Medium 01/06/2021 Feels like she is going to pass out Ibuprofen Edema High 02/13/2024 Pt states she reacts with PO ibuprofen, causes her entire body to swell. Unlisted Allergen (Include Detail In Comments) Other - Describe In Comment Field High 03/08/2023 Blue stitches, used a second time for hysterectomy and the incision opened up. The sutures dont work. Oxycodone Palpitations Low 08/09/2013 Diaphoresis and passes out Oxycodone-Acetaminop hen Other - Describe In Comment Field High 09/06/2013 Passed out after surgery from this. Medications cholecalcifero l, Vitamin D3, (Vitamin D-3) 5,000 unit tab tablet Take 1 Tablet (5,000 units) by mouth once daily. 0 07/25/19 21 Active cyanocobalamin (Vitamin B-12) 1,000 mcg tablet Take 1 Tablet (1,000 mcg) by mouth once daily. 90 Tablet 3 07/25/19 21 Active Ubrelvy 100 mg tab tablet Take 100 mg by mouth 2 times daily if needed. Take one tablet at onset of headache, may repeat after 2 hours 08/12/19 21 Active ublituximab-xi iy (Briumvi) 25 mg/mL soln Inject intravenous. Every 6 months 0 06/01/19 23 Active famotidine (PEPCID) 20 mg tabletIndicati ons:Gastric reflux Take 1 Tablet (20 mg) by mouth two times daily. 180 Tablet 3 01/17/20 24 Active sertraline (ZOLOFT) 100 mg tabletIndicati ons:Mild recurrent major depression Take 1 Tablet (100 mg) by mouth once daily. 90 Tablet 3 01/17/20 24 Active trospium 60 mg Extended-Relea se capsule Take 1 Capsule (60 mg) by mouth once daily before a meal. 01/22/20 24 Active methocarbamoL (ROBAXIN) 500 mg tabletIndicati ons:Muscle spasm,Multiple sclerosis (HC) TAKE ONE TABLET BY MOUTH TWICE A DAY for muscle spasm. Take in am and mid day to avoid sedation. 180 Tablet 3 01/26/20 24 Active acetaminophen SR (TYLENOL ARTHRITIS) 650 mg Extended-Relea se tablet Take 1,300 mg by mouth every 8 hours if needed. Max acetaminophen dose: 4000mg in 24 hrs. Active HYDROcodone-ac etaminophen (5-325 mg/tablet)Araseli cations:Pain Take 1-2 Tablets by mouth every 4 hours if needed for Pain (For moderate to severe pain.). Max acetaminophen dose: 4000 mg in 24 hrs. 20 Tablet 03/20/20 24 Active gabapentin 300 mg capsuleIndicat ions:S/P total knee arthroplasty, left,Chronic pain of left knee TAKE ONE CAPSULE BY MOUTH TWICE A DAY 180 Capsule 2 09/11/19 25 Active sennosides-doc usate (8.6-50 mg) tabletIndicati ons:Constipati on, acute TAKE 1 TABLET BY MOUTH DAILY 100 Tablet 2 09/13/19 25 Active cyclobenzaprin e 10 mg tabletIndicati ons:Trigeminal neuralgia,Musc le spasm TAKE ONE TABLET BY MOUTH TWICE A DAY NEEDED FOR MUSCLE SPASM. TAKE IN LATER DAY OR AT BEDTIME. 180 Tablet 1 09/28/19 25 Active hydroCHLOROthi azide 25 mg tabletIndicati ons:Swelling of lower extremity Take 1 Tablet (25 mg) by mouth once daily. 90 Tablet 1 10/31/19 25 Active methylPREDNISo lone (Medrol (Chemo)) 4 mg tabletIndicati ons:Chronic bilateral low back pain with right-sided sciatica Take by mouth as instructed per packaging. 21 Tablet 10/31/19 25 Active hydroCHLOROthi azide 50 mg tabletIndicati ons:Swelling of lower extremity Take 1 Tablet (50 mg) by mouth once daily. 90 Tablet 3 01/17/20 24 025 Discontin ued(*Medi cation adjustmen t) Active Problems Problem Noted Date Diagnosed Date Cervical stenosis of spine 03/07/2024 S/p Right total knee arthrop lasty DOS: 02/13/2024 with Jose Mayers MD 02/15/2024 Unilateral primary osteoarthritis, right knee Hypokalemia 08/10/2023 Acute appendicitis 06/26/2023 Hypokalemia 06/26/2023 S/p Left total knee arthropl asty DOS: 03/13/2023 with Jose Mayesr MD 03/14/2023 GERD (gastroesophageal reflux disease) 3 HTN (hypertension) 03/13/2023 Hx of migraines 03/13/2023 Depression 03/13/2023 OAB (overactive bladder) 03/13/2023 S/P TKR (total knee replacement), left 3 Class 2 obesity in adult 03/13/2023 Osteoarthritis of left knee 07/29/2022 H/O total hysterectomy 08/11/2021 Rheumatoid arthritis 07/24/2016 Multiple sclerosis 07/24/2016 Vitamin D deficiency 05/18/2012 Encounters Date Type Department Care Team Description 11/01/2024 10:43 AM CDT - 11/01/2024 11:59 PM CDT Hospital Encounter [facility] [address] [place] [address] Debra Daigle MD, PhD Lakeshia Fierro, PT 11/01/2024 Travel 10/30/2024 8:10 AM CDT Office Visit [facility] [address] [place] [address] Dianne Hewitt PA Medication Management (All meds); Musculoskeletal Problem (R hip and back pain, spasms x 2 months, is in a lot of pain) 10/30/2024 7:40 AM CDT Ancillary Procedure [facility] [address] [place] [address] 10/29/2024 9:54 AM CDT - 10/29/2024 11:59 PM CDT Hospital Encounter [facility] [address], [place] [address] Debra Daigle MD, PhD Lakeshia Fierro, PT 10/29/2024 Travel 10/25/2024 10:44 AM CDT - 10/25/2024 11:59 PM CDT Hospital Encounter [facility] [address], [place] [address] Debra Daigle MD, PhD Lakeshia Fierro, PT 10/25/2024 Travel 10/21/2024 8:08 AM CDT - 10/21/2024 11:59 PM CDT Hospital Encounter [facility] [address], [place] [address] Debra Daigle MD, PhD Rebecca Inman, PT 10/21/2024 Travel 10/07/2024 10:11 AM CDT - 10/07/2024 11:59 PM CDT Hospital Encounter [facility] [address] [address] Debra Daigle MD, PhD Rebecca Inman, PT 10/07/2024 Travel 09/30/2024 Transcribe Orders [facility] [address] [place] [address] Debra Daigle MD, PhD 09/26/2024 Refill [facility] [address] [facility] [place] [address] Dianne Hewitt PA Refill Request (Cyclobenzaprine) 09/25/2024 8:40 AM CDT - 09/25/2024 11:59 PM T Hospital Encounter [address] [address] Debra Daigle MD, PhD Kalyani Carrillo, PT 09/25/2024 Travel 09/20/2024 Orders Only [facility] Scanner 1 scan: (1-Ord) [facility], LUMBAR SPINE WITHOUT CONTRAST, 09/20/2024 09/20/2024 Orders Only [facility] Scanner 1 scan: (1-Ord) [facility], LUMBAR SPINE 4+ VIEWS, 09/20/2024 09/20/2024 Orders Only [facility] Scanner 1 scan: (1-Ord) [facility], LUMBAR SPINE WITHOUT CONTRAST, 09/20/2024 09/17/2024 8:00 AM CDT - 09/17/2024 11:59 PM T Hospital Encounter [address] [facility] [place] [place] [address] Debra Daigle MD, PhD Kalyani Carrillo, PT 09/17/2024 Travel 09/12/2024 8:45 AM CDT - 09/12/2024 11:59 PM T Hospital Encounter [address] [place] [address] Debra Daigle MD, PhD Sultana Sands, PLEATER 09/12/2024 Travel 09/11/2024 Refill [facility] [address] [place] [address] Dianne Hewitt PA Refill Request (Senna) 09/09/2024 Refill [facility] [address] [place] [address] Dianne Hewitt PA Refill Request (Gabapentin) 09/03/2024 Patient Outreach [facility] Care Management - Advanced Care Team [address] [place] [address] Zoila James, er tech Management (Complex Care Management Engagement Outreach ) 09/02/2024 1:15 PM CDT - 09/02/2024 11:59 PM CDT Hospital Encounter [address] [address] Debra Daigle MD, PhD Sultana Sands, PLEATER 09/02/2024 Travel 08/19/2024 10:08 AM CDT - 08/19/2024 11:59 PM CDT Hospital Encounter [address] [address] Debra Daigle MD, PhD Sultana Sands, PLEATER 08/19/2024 Travel 08/12/2024 10:15 AM CDT - 08/12/2024 11:59 PM CDT Hospital Encounter [address] [address] Debra Daigle MD, PhD Kalyani Carrillo, PT 08/12/2024 Travel from Last 3 Months Immunizations Immunization Administration Dates Next Due AMB Influenza, IIV3 (Age >=3 years)(Flu Clinic Only) 01/18/2012,01/24/2011,02/11/2008 AMB Influenza, IIV4 PF (=>6 mos Flulaval,Fluzone Fluarix)(Flu Clinic Only) 03/14/2018,02/07/2017,01/29/2014 COVID-19 vaccine (Moderna 100mcg/0.5mL) PF, MDV 07/26/2020,06/28/2020 COVID-19 vaccine ([place] Thin brick-Bio NTech 30mcg/0.3mL) 12YO+ BIVALENT PF, MDV 06/01/2022 Hepatitis B (Adult) 07/15/1998 Influenza A (H1N1), Inactivated 02/27/2009 Influenza, IIV3 (Age >=3 years) 12/23/2009,01/12 Influenza, IIV4 03/02/2022,,01/14/2020,2015,02/12/2015 Tdap 08/25/2021 Tuberculin (PPD) 08/05/2016 Family History Medical History Relation Name Comments Diabetes Father Arthritis Maternal Grandfather Abdi's palsy Mother Diabetes Mother Other Mother hysterectomy he rowan bleeding Crohn's disease Sister Other Sister hysterectomy he rowan bleeding Cancer-breast No Family History Relation Name Status Comments Father Maternal Grandfather Mother Sister Social History Tobacco Use Types Packs/Day Years Used Date Smoking Tobacco: Former Cigarettes 0.4 5 0 12/06/2006 - 12/07/2011 Smokeless Tobacco: Never Tobacco Cessation:Counseling Given: No Alcohol Use Standard Drinks/Week Comments Not Currently 0 (1 standard drink = 0.6 oz pur e alcohol) very occasional PHQ-2 Answer Date Recorded PHQ-2 TOTAL SCORE 0 03/13/2024 Social Connections Answer Date Recorded Do you often feel lonely or isolated from those around you? 0 03/11/2024 Financial Resource Strain Answer Date R ecorded Difficulty of Paying Living Expenses 3 03/08/2024 Difficulty of Paying Living Expenses Not on file 03/08/2024 Food Insecurity Answer Date Recorded Do you worry your food will run out before you are able to buy more? 1 03/11/2024 Transportation Needs Answer Date Record ed Does lack of transportation keep you from medica l appointments? 1 03/11/2024 Does lack of transportation keep you from work, meetings or getting things that you need? 1 03/11/2024 Housing Stability Answer Date Recorded What is your housing situation today? 1 03/07/2024 Interpersonal Safety Answer Date Record ed Are you being hit, kicked, p ushed or yelled at (see row info)? No 03/07/2024 Interpersonal Safety Abuse 12 - 18 Not on file 03/07/2024 Interpersonal Safety Ambulatory Vulnerability No t on file 03/07/2024 Utilities Answer Date Recorded Do you have trouble paying f or utilities (for example, heat, electricity, water, phone)? 1 03/11/2024 Comments No Sex and Gender Information Value Date Recorded Sex Assigned at Not on file Legal Sex Female 5:38 AM [employer] WORK[employer] Gender Identity Not on file Sexual Orientation Not on file Obstetrics History Last Filed Vital Signs Vital Sign Reading Time Taken Comments Blood Pressure 93/55 10/30/2024 8:19 AM CDT Pulse 109 10/30/2024 8:19 AM CDT Temperature 36.7 C (98.1 F) 03/08/2024 8:58 AM [employer] Respiratory Rate 16 03/08/2024 8:58 AM [employer] Oxygen Saturation 97% 10/30/2024 8:19 AM CDT Inhaled Oxygen Concentration - - Weight 103 kg (227 lb) 10/30/2024 8:19 AM CDT Height 165.1 cm (5' 5) 03/07/2024 2:12 PM [employer] Body Mass Index 37.77 03/07/2024 2:12 PM [employer] Plan of Treatment Upcoming Encounters Date Type Department Care Team (Late st Contact Info) Description 11/07/2024 10:15 AM CDT Appointment [facility] [address] [address] Rebecca Inman, PT [address] [address] 11/11/2024 12:15 PM CDT Appointment [facility] [address], [place] [address] Lakeshia Fierro, PT [address], [place] [address] 11/14/2024 8:45 AM CDT Appointment [facility] [address] [place] [address] Lakeshia Fierro, PT [address], [place] [address] 11/18/2024 10:00 AM CDT Appointment [facility] [address] [place] [address] Rebecca Inman, PT [address] [place] [address] 11/21/2024 10:15 AM CDT Appointment [facility] [address] [place] [address] Rebecca Inman, PT [address] [place] [address] 11/25/2024 11:15 AM CDT Appointment [facility] [address] [place] [address] Rebecca Inman, PT [address] [place] [address] 11/28/2024 10:15 AM CDT Appointment [facility] [address] [place] [address] Rebecca Inman, PT [address] [place] [address] 12/02/2024 9:30 AM CDT Appointment [facility] [address] [place] [address] Lakeshia Fierro, PT [address] [place] [address] 12/05/2024 10:15 AM CDT Appointment [facility] [address] [place] [address] Rebecca Inman, PT [address] [place] [address] 12/09/2024 10:15 AM CDT Appointment [facility] [address] [place] [address] Lakeshia Fierro, PT [address] [place] [address] 12/12/2024 10:15 AM CDT Appointment [facility] [address] [place] [address] Rebecca Inman, PT [address] [place] [address] 12/27/2024 9:00 AM CDT Office Visit [facility] [address] [place] [address] Errol Bhat MD [address] [place] [address] Health Maintenance Due Date Last Done Comments Hepatitis B series for 19+ (2 of 3 - 19+ 3-dose series) 08/12/1998 07/15/1998 COVID-19 vaccine series ( season) 2023 06/01/2022, 03/17/2021, 07/26/2020, Additional history exists Influenza Vaccine (#1) 2024 2, 01/12/2021, 01/14/2020, Additional history exists Fecal testing non-DNA (FIT,FOBT,iFOBT) for age 45-75 12/19/2024 12/20/2023, 08/24/2022 BMI (ht and wt on same day) for age 18+ 01/16/2025 01/17/2024, 12/20/2023, 08/02/2023, Additional history exists Depression screening for age 12+ 03/13/2025 03/13/2024, 12/21/2022, 12/07/2022, Additional history exists Mammogram for age 45-75 10/30/2025 10/31/19 25, 09/26/2023, 09/14/2022, Additional history exists Lipids for age 45-75 06/01/2027 06/01/2022, 05/16/19 13 Tetanus booster 08/26/2031 08/25/2021, 11/15 (Completed outside of [facility]) HIV for age 15-65 Completed 06/01/2022 Hepatitis C screening for age 18-79 Completed 06/01/2022 Pneumococcal series for age 6-49 Aged Out No longer eligible based on patient's age to complete this topic Medical Devices Implanted Type Area Information Analyst Device Identifier Shelf Expiration Date Model / Serial / Lot Baseplate Tib Univ Sz 3 Triathlon Keeled Ingrowth Pors Tritan - [id number] Implanted:Qty: 1 on 03/13/2023 by Jose Mayers MD at [facility] Left: Knee [employer] 01/14/2028 5536-B-300 / / [id number] Patella A32x10 Triathlon Tritanium Asymmetric Metal Backed - [id number] Implanted:Qty: 1 on 03/13/2023 by Jose Mayers MD at [facility] Left: Knee [employer] 09/15/2027 5552-L-320 / / [id number] Fem Lt 3 Triathlon Beaded W/Pa - [id number] Implanted:Qty: 1 on 03/13/2023 by Jose Mayers MD at [facility] Left: Knee [employer] 02/11/2028 5517-F-301 / / [id number] Insert Tib Sz 3 11mm Knee X3 Condylar Stabilizing Triathlon - [id number] Implanted:Qty: 1 on 03/13/2023 by Jose Mayers MD at [facility] Left: Knee [employer] 02/06/2028 5531-G-311 -E / / [id number] Baseplate Tib Univ Sz 3 Triathlon Keeled Ingrowth Pors Tritan - [id number] Implanted:Qty: 1 on 02/13/2024 by Jose Mayers MD at [facility] Right: Knee [employer] 12/05/2028 5536-B-300 / / [id number] Fem Rt 3 Triathlon Beaded W/Pa - [id number] Implanted:Qty: 1 on 02/13/2024 by Jose Mayers MD at [facility] Right: Knee [employer] 01/07/2029 5517-F-302 / / [id number] Patella A32x10 Triathlon Tritanium Asymmetric Metal Backed - [id number] Implanted:Qty: 1 on 02/13/2024 by Jose Mayers MD at [facility] Right: Knee [employer] 10/22/2028 5552-L-320 / / [id number] Insert Tib Sz 3 16mm Knee X3 Condylar Stabilizing Triathlon - [id number] Implanted:Qty: 1 on 02/13/2024 by Jose Mayers MD at [facility] Right: Knee [employer] 07/29/2028 5531-G-316 -E / / [id number] Spacer Lordotic Sm [id number] Deg Nanolock Tcs - [id number] Implanted:Qty: 1 on 03/07/2024 by Debra Daigle MD, PhD at [facility] N/A: Spine [employer] 11/01/2028 [id number] / / [id number] Screw Cerv Ant 3.5x14mm Endo Skeleton Tcs Stand Alone - [id number] Implanted:Qty: 2 on 03/07/2024 by Debra Daigle MD, PhD at [facility] N/A: Spine [employer] Spine/Or[employer]o [id number] / / Putty Easypack 1.5cc Magnetos - [id number] Implanted:Qty: 1 on 03/07/2024 by Debra Daigle MD, PhD at [facility] N/A: Spine [employer] 10/15/2028 [id number] / / [id number] Procedures Procedure Name Priority Date/Time Associated Diagnosis Comments XR MAMMO ZA BILAT SCREEN Routine 10/30/2024 7:59 AM CDT Visit for screening mammogram SCAN-CT INTERPRETATION 09/20/2024 12:00 AM CDT SCAN-RADIOLOGY REPORT 09/20/2024 12:00 AM CDT SCAN-MRI INTERPRETATION 09/20/2024 12:00 AM CDT OCCULT BLOOD IFOBT STOOL Routine 12/20/2023 8:33 AM CDT Screening for colorectal cancer LC HIV-1/O/2, 4TH GENERATION Routine 06/01/2022 9:57 AM [employer] Screening for HIV (human immunodeficiency virus) LC HCV ANTIBODY RFX TO QUANT PCR Routine 06/01/2022 9:57 AM [employer] Need for hepatitis C screening test LC LIPID PANEL AND CHOL/HDL RATIO Routine 06/01/2022 9:57 AM [employer] Screening cholesterol level from Last 3 Months or Most Recently Relevant to Health Maintenance Results * XR MAMMO ZA BILAT SCREEN (10/30/2024 7:59 AM CDT) Anatomical Region Laterality Modality BREASTS, Breast Left, Breast Right Bilateral Mammography Impressions 10/30/2024 3:38 PM CDT There is no radiographic evidence for malignancy. Recommend annual mammograms. MAMMOGRAM ASSESSMENT: ACR 1 Negative PATIENTS: You will also receive a letter with your examination results in an easy to read format. If you have questions about your results, please contact your referring provider. Narrative 10/30/2024 3:38 PM CDT For Patients: As a result of the Cures Act, medical imaging exams and procedure reports are released immediately into your electronic medical record. You may view this report before your referring provider. If you have questions, please contact your health care provider. XR MAMMO ZA BILAT SCREEN [[id number]] CLINICAL HISTORY: This is an asymptomatic 49 y.o. patient. INDICATION FOR EXAM: Mammogram Screening. TECHNIQUE: CC and MLO views were obtained. This study was evaluated with the assistance of Computer-Aided Detection. Breast Tomosynthesis was used in interpretation. COMPARISON FILM: Yes 09/26/23 [facility] 09[facility] FINDINGS: The breasts are almost entirely fatty. There are no dominant masses, suspicious micro calcifications or areas of architectural distortion. us Dianne ROBBINS MAMMO Final R esult * SCAN-RADIOLOGY REPORT (09/20/2024 12:00 AM CDT) Anatomical Region Laterality Modality Other us Scanner OTHER Final Result * SCAN-MRI INTERPRETATION (09/20/2024 12:00 AM CDT) Anatomical Region Laterality Modality Other us Scanner OTHER Final Result * SCAN-CT INTERPRETATION (09/20/2024 12:00 AM CDT) Anatomical Region Laterality Modality Other us Scanner OTHER Final Result * OCCULT BLOOD IFOBT STOOL (12/20/2023 8:33 AM CDT) STOOL BLOOD ,IFOBT Negative Negative 12/27/2023 8:54 AM CDT [facility] Stool STOOL SPECIMEN / Unknown Non-Blood / Unknown 12/20/2023 8:33 AM CDT 12/26/2023 8:33 AM CDT us Dianne ROBBINS LABORATORY Final R esult [facility] [address] [place] [address], [place] [phone] * (ABNORMAL) LC LIPID PANEL AND CHOL/HDL RATIO (06/01/2022 9:57 AM [employer]) Cholesterol, Total 216(H) 100 - 199 mg/dL 06/04/2022 12:[address] [facility] Triglycerides 158(H) 0 - 149 mg/dL 06/04/2022 12:06 AM [facility] ([facility] HDL Cholesterol 47 >39 mg/dL 12:06 AM [facility] ([facility] VLDL Cholesterol Papo 28 5 - 40 mg/dL 06/04/2022 12:06 AM [facility] ([facility] LDL Chol Calc (NIH) 141(H) 0 - 99 mg/dL 06/04/2022 12:06 AM [facility] ([facility] T. Chol/HDL Ratio 4.6(H) 0.0 - 4.4 ratio 06/04/2022 12:06 AM [facility] ([facility] Comment: T. Chol/HDL Ratio Men Women 1/2 Avg.Risk 3.4 3.3 Avg.Risk 5.0 4.4 2X Avg.Risk 9.6 7.1 3X Avg.Risk 23.4 11.0 Blood BLOOD SPECIMEN / Unknown Venipuncture / Unknown 06/01/2022 9:57 AM [employer] 06/01/2022 9:59 AM [employer] Narrative [facility] ([facility]) - 06/04/2022 12:06 AM [employer] Performed at: 01 - [facility] [employer] [address] [id number] [employer] Maintainer: Severiano Rao MD, Phone: [phone] us Dianne ROBBINS SEND OUTS Final R esult [facility] ([facility]) [address] [place] [id number], * LC HCV ANTIBODY RFX TO QUANT PCR (06/01/2022 9:57 AM [employer]) Pathologist [facility] HCV Ab Non Reactive Non Reactive 06/03/2022 12:08 PM [employer] [facility] ([facility]) Blood BLOOD SPECIMEN / Unknown Venipuncture / Unknown 06/01/2022 9:57 AM [employer] 06/01/2022 9:59 AM [employer] Narrative [facility] ([facility]) - 06/03/2022 12:08 PM [employer] Performed at: - [address] [id number] [employer] Maintainer: Severiano Rao MD, Phone: [phone] Dianne ROBBINS LABORATORY Final R esult Performing Organization Address [facility]/ZIP Co de Phone Number [facility] ([facility]) [address] [place] [address] * HIV-1/O/2, 4TH GENERATION (06/01/2022 9:57 AM [employer]) [facility] HIV Scr 4th Gen Non Reactive Non Reactive 06/03/2022 12:08 PM [employer] [facility] ([facility]) Comment: HIV Negative HIV-1/HIV-2 antibodies and HIV-1 p24 antigen were NOT detected. There is no laboratory evidence of HIV infection. Blood BLOOD SPECIMEN / Unknown Venipuncture / Unknown 06/01/2022 9:57 AM [employer] 06/01/2022 9:59 AM [employer] Narrative [facility] ([facility]) - 06/03/2022 12:08 PM [employer] Performed at: [address] [id number] [employer] Maintainer: Severiano Rao MD, Phone: [phone] Dianne ROBBINS LABORATORY Final R esult Performing Organization Address [facility]/ZIP Co de Phone Number [facility] ([facility]) [address] [place] [address] from Last 3 Months or Most Recently Relevant to Health Maintenance Insurance Advance Directives * Full Code (Latest Code Status on File) Date Activated Date Inactivated Comments 03/07/2024 1:51 PM 03/08/2024 1:25 PM Question Answer Comments Code Status Discussion: Not Discussed * Full Code Date Activated Date Inactivated Comments 02/13/2024 11:59 AM 02/14/2024 1:45 PM Question Answer Comments Code Status Discussion: Unable to Assess Preferences, Provider to review later * Full Code Date Activated Date Inactivated Comments 02/13/2024 6:25 AM 02/13/2024 11:59 AM Question Answer Comments Code Status Discussion: Not Discussed * Full Code Date Activated Date Inactivated Comments 08/09/2023 8:44 AM 08/11/2023 6:22 PM Question Answer Comments Code Status Discussion: Reviewed Preferences * Full Code Date Activated Date Inactivated Comments 06/27/2023 1:05 AM 06/29/2023 9:31 PM Question Answer Comments Code Status Discussion: Reviewed Preferences Care Teams Privacy Officer Relationship Specialty Start Date End Date Dianne Hewitt PA [address] [place] [address] PCP - General Family Practice 09/20/15 Lisa Oneal, foam caster Nurse Navigator Registered Nurse 12/21/22 Celina Chandler, WarnerD [address], [place] [address] Pharmacist Medication Management Pharmacology 03/13/24 03/13/27
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
--- OUTSIDE RECORDS SUMMARY | 2024-11-06 11:21 | XMS_ITS | Clinical Summary ---
Author Organization [facility] Address [address] [place] [address] Care Team Providers Care Garbage Man Name Role Phone Dianne Hewitt Primary Care Provider Prachi Duran MD Unavailable [phone] Allergies Active Allergy Reactions Criticality Noted Date Comments Adhesive Tape-Silicones Rash Medium 03/08/2023 Duloxetine 01/06/2021 Ibuprofen Swelling, lips/tongue High 02/13/2024 Pt states she reacts with PO ibuprofen, causes her entire body to swell. Dimethyl Fumarate 01/06/2021 Medications acetaminophen (TYLENOL ARTHRITIS PAIN) 650 mg oral TbSR Take 1-2 tablets (650-1,300 mg) by mouth twice a day. Active sertraline (ZOLOFT) 100 mg oral tablet Take 1 tablet (100 mg) by mouth once daily. Active Cholecalciferol , Vitamin D3, 5,000 unit (125 mcg) oral tablet Take 1 tablet (125 mcg) by mouth once daily. 1 Active cyanocobalamin 1,000 mcg oral tablet Take 1 tablet (1,000 mcg) by mouth once daily. 1 Active famotidine (PEPCID) 20 mg oral tablet Take 1 tablet (20 mg) by mouth twice a day. 2 Active ublituximab-xii y (BRIUMVI) 25 mg/mL IV Soln by Intravenous route. Twice a year next July 01, 2024 3 Active cyclobenzaprine (FLEXERIL) 10 mg oral tablet Take 1 tablet (10 mg) by mouth twice a day. 3 Active senna-docusate (SENNA-S) 8.6-50 mg oral tablet Take 1 tablet by mouth once daily. 4 Active ubrogepant 100 mg oral Tab Take 100 mg by mouth as directed. For Migraine. Can repeat after 2 hours if needed. No more than 4 pills per week. 48 Tablets for 90 days supply 48 tablet 3 4 Active Trospium 60 mg oral extended release capsule 24 HRIndications:M ultiple sclerosis, relapsing-remit ting (HCC) Take 1 capsule (60 mg) by mouth once daily. 90 capsule 3 4 Active hydroCHLOROthia zide (HYDRODIURIL) 50 mg oral tablet Take 1 tablet (50 mg) by mouth once daily. 5 Active methocarbamoL (ROBAXIN) 500 mg oral tablet Take 1 tablet (500 mg) by mouth four times a day. 60 tablet 1 5 Active gabapentin (NEURONTIN) 300 mg oral capsule Take 1 capsule (300 mg) by mouth three times a day. 270 capsule 1 5 Active Active Problems Problem Noted Date Diagnosed Date Lumbar spondylosis 06/21/2024 Acute appendicitis 06/26/2023 Hypokalemia 06/26/2023 Class 2 obesity in adult 03/13/2023 Depression 03/13/2023 GERD (gastroesophageal reflux disease) 3 HTN (hypertension) 03/13/2023 History of total knee replacement 03/13/2023 Hx of migraines 03/13/2023 OAB (overactive bladder) 03/13/2023 Osteoarthritis of left knee 07/29/2022 Multiple sclerosis, relapsing-remitting 05/18/19 23 H/O total hysterectomy 08/11/2021 Acquired absence of both cervix and uterus 08/11 Multiple sclerosis 01/06/2021 Rheumatoid arthritis 07/24/2016 Multiple sclerosis 07/24/2016 Vitamin D deficiency 05/18/2012 Back pain Encounters Date Type Department Care Team Description 10/15/2024 10:00 AM CDT Office Visit [facility] - [address] [address] Natalie Barron MD Multiple sclerosis (HCC) (Primary Dx); Visual disturbance; Refractive error; Dry eyes; Cataract of both eyes, unspecified cataract type 09/16/2024 9:45 AM CDT Office Visit [facility] [address] [address] Pilar Mojica NP Multiple sclerosis, relapsing-remitting (HCC) (Primary Dx); Blurry vision; Low back pain with left-sided sciatica, unspecified back pain laterality, unspecified chronicity; Poor memory; Depression, unspecified depression type; Muscle spasm; Urinary frequency; Migraine syndrome; Tremor; Weakness of both lower extremities from Last 3 Months Immunizations Immunization Administration Dates Next Due H1N1 Influenza 02/27/2009 Hep B Adult 07/15/1998 Influenza (Fluzone MDV 2012- 14) 6-35 Mos 01/18/2012,01/24/2011,12/23/2009,2008,02/11/2008 Influenza recombinant (FluBl ok Quadrivalent PF) 03/02/2022,01/12/2021,01/14/2020,2018,03/14/2018,02/07/2017,01/19/2016,1 ,01/29/2014 Pfizer 12+ Yrs Monovalent CO VID Vaccine (purple cap) 03/17/2021 SPIKEVAX (Moderna) 12+ Yrs M onovalent COVID Vaccine (dredge pumper) 07/26/2020,06/28/2020 Tdap 08/25/2021 Family History Medical History Relation Comments Asthma Other High Blood Pressure Other Migraines Other Relation Status Comments Other Social History Tobacco Use Types Packs/Day Years Used Date Smoking Tobacco: Never Passive Smoke Exposure: Never Smokeless Tobacco: Never Tobacco Cessation:Counseling Given: Not Answered Alcohol Use Standard Drinks/Week Comments Not Currently 0 (1 standard drink = 0.6 oz pur e alcohol) Comments No Sex and Gender Information Value Date Recorded Sex Assigned at Female 12/30/2020 9:08 AM CDT Legal Sex Female 3:20 PM CDT Gender Identity Female 12/30/2020 9:08 AM CDT Sexual Orientation Straight 12/30/2020 9: 08 AM CDT Last Filed Vital Signs Vital Sign Reading Time Taken Comments Blood Pressure 140/74 09/16/2024 12:04 PM CDT Pulse 74 09/16/2024 12:04 PM CDT Temperature 36.6 C (97.8 F) 09/16/2024 12:04 PM CDT Respiratory Rate 16 09/16/2024 12:04 PM CDT Oxygen Saturation 98% 09/16/2024 12:04 PM CDT Inhaled Oxygen Concentration - - Weight 99.8 kg (220 lb) 06/21/2024 6:48 AM SLOT FLOOR PERSON Height 165.1 cm (5' 5) 06/21/2024 6:48 AM SLOT FLOOR PERSON Body Mass Index 36.61 06/21/2024 6:48 AM SLOT FLOOR PERSON Plan of Treatment Health Maintenance Due Date Last Done Comments Colonoscopy 1976 Diabetes Screening 1976 Hepatitis C Screening 1976 Lipid Screening 1976 Pap Smear 1976 Anxiety Screening (RAMIRO-2) 1977 Depression Follow-Up (PHQ-9) 1977 COVID-19 Vaccine ( season) 2023 06/01/2022, 03/17/2021, 07/26/2020, Additional history exists Influenza Vaccine (#1) 2024 , 01/12/2021, 01/14/2020, Additional history exists Mammogram Screening 09/25/2025 09/26/2023, 09/26/2023, 09/14/2022, Additional history exists Adult Tetanus Booster 08/26/2031 08/25/2021, 004 RSV Vaccines (1 - 1-dose 75+ series) 2051 Meningococcal B Vaccine Aged Out No l onger eligible based on patient's age to complete this topic Pneumococcal Vaccine Aged Out No long er eligible based on patient's age to complete this topic Medical Devices Implanted Type Area Recycle Coordinator Device Identifier Shelf Expiration Date Model / Serial / Lot Ian 35mm 5.5mm Curv - [id number] Implanted:Qty : 2 on 06/21/2024 by Debra Daigle MD at [facility] Ian N/A: Spine Lumbar [employer] [id number] / / Scr Spnl 6.5x45mm For 5.5/6mm - [id number] Implanted:Qty : 2 on 06/21/2024 by Debra Daigle MD at [facility] Screw/An chor N/A: Spine Lumbar [employer] Inc 03/27/2029 [id number] / / [id number] Scr Spnl 6.5x45mm For 5.5/6mm - [id number] Implanted:Qty : 2 on 06/21/2024 by Debra Daigle MD at [facility] Screw/An chor N/A: Spine Lumbar [employer] Inc 06/27/2028 [id number] / / [id number] Spacer Elevate X-Annabelle [id number] - [id number] Implanted:Qty : 1 on 06/21/2024 by Debra Daigle MD at [facility] Spine N/A: Spine Lumbar [employer] 03/30/2028 [id number] / / [id number] Magnetos 10cc Implanted:Qty : 1 on 06/21/2024 by Debra Daigle MD at [facility] N/A: Spine Lumbar [employer] 11/15/2028 [id number] / / [id number] Insurance [facility] [employer] Advance Directives For more information, please contact: [phone] * Full Code (Latest Code Status on File) Date Activated Date Inactivated Comments 06/21/2024 10:57 AM 06/22/2024 9:11 PM Question Answer Comments How was code status determined? Physician Ana lawrence * Full Code Date Activated Date Inactivated Comments 06/21/2024 7:44 AM 06/21/2024 10:41 AM Question Answer Comments How was code status determined? [facility]ician [facility] Care Teams Garbage Man Relationship Specialty Start Date End Date Dianne Hewitt PA [address] [place] [address] PCP - General 12/02/20 Prachi Duran MD [address] [place] [address] Neurology 05/05/22
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
== END 2024-11-06 12:17 | disposition home or self-care (01) ==
LOC: ED 12:06
PROVIDERS: Emergency Provider Family Medicine; PCP Physician Assistant Medical
DX: M25.512 Pain in left shoulder (principal); M43.22 Fusion of spine, cervical region; V43.02XA Car driver injured in collision with other type car in nontraffic accident, initial encounter
CPT/HCPCS: 72040; 73030; 99284